=== PATIENT | female | born 1980 ===

== ENCOUNTER 2017-03-09 07:30 | Day surgery (SDC) | payer OTHER ==
[2017-03-04 09:24] VITALS: BMI 34.0
[2017-03-09 08:25] VITALS: O2SAT 100
[2017-03-09] MEDS ORDERED: Lidocaine 2% Inj (20ml) ONE (09:18)
[2017-03-09] MEDS ORDERED: Propofol 10 mg/ml Inj (20 ML) ONE ×3 (09:22→10:26)
[2017-03-09] MEDS ORDERED: Midazolam 2 MG/2 ML VIAL ONE ×3 (09:22→10:26)
--- NOTE | 2017-03-09 10:39 | CP.SDSHP ---
Same Day Surgery H & P - History Proposed Procedure: Marcio Dee MD Pre-Op Diagnosis: None - Allergies Allergies: Allergies No Known Allergies Allergy (Verified 03/22/16 09:38) - Physical Exam Vital Signs: Vital Signs 03/09/17 08:09 Temperature 97.3 F L Pulse Rate 65 Respiratory 20 Rate Blood Pressure 153/86 H O2 Sat by Pulse 100 Oximetry Mental Status: Alert & Oriented x3 Neuro: WNL Heart: WNL Lungs: WNL - Impression Impression: Pt with staghorn calculus left kidney referred for percutaneous nephrostomy for OR. Informed consent obtained for perc. nephrostomy tube placement. Pt. Evaluated Today:Candidate for Anesthesia & Procedure: Yes (ASA 2 Malampati 3) - Date & Time Date: 03/09/17 Time: 08:55 Short Stay Discharge - Short Stay Discharge Admitting Diagnosis/Reason for Visit: RENAL CALCULUS Disposition: HOME/ ROUTINE
--- NOTE | 2017-03-09 10:41 | PCM.SURG1 ---
Surgeon's Initial Post Op Note - Surgeon's Notes Surgeon: Marcio Dee MD Distribution Lineman: None Type of Anesthesia: IV Sedation Pre-Operative Diagnosis: Left renal staghorn calculus Operative Findings: XRAY showed staghorn calculus left kidney. Patent ureter. Post-Operative Diagnosis: Left renal staghorn calculus Operation Performed: Left 8 Fr percutaneous nephrostomy tube placement via a lower pole calyx containing stone. Midpole attempt was not successful. Specimen/Specimens Removed: None Estimated Blood Loss: EBL {In ML}: 2 Blood Products Given: N/A Drains Used: No Drains Post-Op Condition: Fair Date of Surgery/Procedure: 03/09/17 Time of Surgery/Procedure: 10:35
[2017-03-09] MEDS ORDERED: Oxycodone/Acetaminophen 5/325 mg Tab ONE (11:17)
[2017-03-09 12:24] VITALS: BP 150/90; PULSE 86; RESP 18; TEMP 96.4
== END 2017-03-09 13:07 | disposition home or self-care (01) ==
LOC: C.SPRAD 07:30
PROVIDERS: ATTEND Radiology Vascular & Interventional Radiology
DX: N20.0 Calculus of kidney (principal)
CPT/HCPCS: 50432; C1729; C1766; C1769; C1894; J1644; J2250; J2704; Q9967

== ENCOUNTER 2017-03-10 07:22 | Inpatient (IN) | payer OTHER ==
[2017-03-10 07:22] VITALS: BMI 34.0
[2017-03-10] MEDS ORDERED: Sodium Chloride 0.9% 1,000 ML IV ONE (07:43)
[2017-03-10] MEDS ORDERED: cefTRIAXone IV 1 gm in Dextros 50 ML IVPB ONE ×2 (07:58→08:50)
[2017-03-10] MEDS ORDERED: Sodium Chloride 0.9% 1,000 ML ONE (08:08)
--- NOTE | 2017-03-10 08:11 | C.PDOC ---
History Of Present Illness 36-year-old female, is sent to the emergency department by Dr Seth with complaints of fever. Patient had a percutaneous nephrolithotomy tube placed yesterday due to renal calculus; Patient developed nausea, associated with three episodes of non-bloody/non-bilious vomiting, associated with mild abdominal pain and a generalized headache. States she took Tylenol at 22:00. Patient is NPO since last night. Denies shortness of breath, chest pain, dizziness, symptoms, change in bowel habits, or any other associated symptoms. No other complaints at this time. Urologist Carole Seth MD. Time Seen by Provider: 03/10/17 07:36 Chief Complaint (Nursing): GI Problem History Per: Patient History/Exam Limitations: no limitations Onset/Duration Of Symptoms: Hrs Current Symptoms Are (Timing): Still Present Severity: Moderate Past Medical History Reviewed: Historical Data, Nursing Documentation, Vital Signs Vital Signs: Last Vital Signs Temp 99 F 03/10/17 15:18 Pulse 85 03/10/17 15:18 Resp 18 03/10/17 15:18 BP 93/56 L 03/10/17 15:18 Pulse Ox 97 03/10/17 15:18 - Medical History PMH: Anemia, Kidney Stones, Chronic Kidney Disease Family History: States: No Known Family Hx - Social History Hx Alcohol Use: No Hx Substance Use: No - Immunization History Hx Tetanus Toxoid Vaccination: No Hx Influenza Vaccination: No Hx Pneumococcal Vaccination: No Review Of Systems Except As Marked, All Systems Reviewed And Found Negative. Constitutional: Positive for: Fever Cardiovascular: Negative for: Chest Pain, Palpitations Gastrointestinal: Positive for: Nausea, Vomiting, Abdominal Pain. Negative for : Diarrhea Genitourinary: Negative for: Dysuria, Frequency Musculoskeletal: Negative for: Back Pain Neurological: Positive for: Headache. Negative for: Weakness, Numbness, Dizziness Physical Exam - Physical Exam Appears: Non-toxic, No Acute Distress Skin: Warm, Dry, No Rash Eye(s): bilateral: Normal Inspection, PERRL Oral Mucosa: Dry Lips: Normal Appearing Neck: Normal ROM Chest: Symmetrical Cardiovascular: Rhythm Regular, No Murmur Respiratory: Normal Breath Sounds, No Accessory Muscle Use Gastrointestinal/Abdominal: Soft, Tenderness (Mild, left-sided), No Guarding, No Rebound Back: Other (Nephrostomy tube, left. No erythema, discharge, ) Extremity: Normal ROM Neurological/Psych: Oriented x3 ED Course And Treatment - Laboratory Results Result Diagrams: 03/10/17 08:27 03/10/17 08:27 O2 Sat by Pulse Oximetry: 100 (on room air) Medical Decision Making Medical Decision Making: Plan: * Type and Screen * VBG * CMP, Lipase * CBC, PTT, PT * Chest X-Ray * Morphine, Pepcid, IVFs, Zofran, Rocephin * Blood/Urine Cultures * Urinalysis * Reassess and Disposition 08:00 Case discussed w/ Dr Seth, states to treat patient with Abx and IVFs. Call- back with results; Patient is scheduled for OR today. 09:15 Dr Carole Seth at bedside in ED. Disposition - Disposition Disposition: HOSPITALIZED Disposition Time: 09:00 Condition: GOOD - Clinical Impression Clinical Impression: Renal calculi - Scribe Statement The provider has reviewed the documentation as recorded by the [place] All medical record entries made by the Judahibbrent were at my direction and personally dictated by me. I have reviewed the chart and agree that the record accurately reflects my personal performance of the history, physical exam, medical decision making, and the department course for this patient. I have also personally directed, reviewed, and agree with the discharge instructions and disposition.
[2017-03-10] MEDS ORDERED: Morphine 4 MG/ML VIAL IV STA (08:12)
[2017-03-10] MEDS ORDERED: cefTRIAXone IV 1 gm in Dextros 0 ML IVPB ONE (08:16)
[2017-03-10 08:33] LABS: BASO # 0.1 K/uL (0.0-0.2); BASO % 0.5 % (0.0-2.0); EOS % 0.1 % (0.0-4.0); HEMATOCRIT 34.5 % (34.0-47.0); MEAN CELL VOLUME 76.7 fL (81.0-99.0); MEAN CORPUSCULAR HEMOGLOBIN 24.3 pg (27.0-31.0); MEAN CORPUSCULAR HGB CONC 31.6 g/dL (33.0-37.0); MEAN PLATELET VOLUME 11.8 fL (7.2-11.7); MONO # 0.7 K/uL (0.0-0.8); MONO % 5.8 % (0.0-10.0); RED CELL DISTRIBUTION WIDTH 15.2 % (11.5-14.5); WHITE BLOOD COUNT 11.4 K/uL (4.8-10.8)
[2017-03-10 08:40] LABS: VENOUS BLOOD GAS BASE EXCESS 2.6 mmol/L (0.0-2.0); VENOUS BLOOD GAS PCO2 41 mmHg (40-60); VENOUS BLOOD PH 7.43 (7.32-7.43)
[2017-03-10 08:40] LABS: INR 1.2; PLATELET COUNT 98 K/uL (130-400)
[2017-03-10 08:42] LABS: CHLORIDE 97 mmol/L (98-107); SODIUM 135 mmol/L (132-148)
[2017-03-10 08:43] LABS: POTASSIUM 3.2 mmol/L (3.6-5.2)
[2017-03-10 08:45] LABS: ALB/GLOB RATIO 1.3 (1.0-2.1); ALKALINE PHOSPHATASE 64 U/L (38-126); AST/SGOT 20 U/L (14-36); BILIRUBIN,TOTAL 0.7 mg/dL (0.2-1.3); BLOOD UREA NITROGEN 6 mg/dL (7-17); CARBON DIOXIDE 27 mmol/L (22-30); GFR AFRICAN-AMERICAN > 60; GLUCOSE,RANDOM 116 mg/dL (65-105); TOTAL PROTEIN 7.3 g/dL (6.3-8.3)
[2017-03-10 08:46] LABS: ALT/SGPT 19 U/L (9-52); CALCIUM 8.1 mg/dl (8.6-10.4)
[2017-03-10] MEDS ORDERED: Iohexol 240 (50 ml) ONE (08:50)
[2017-03-10] MEDS ORDERED: Bupivacaine 0.5% Inj(30mL) ONE (08:51)
[2017-03-10 09:29] LABS: EOSINOPHIL 1 % (0-4); NEUTROPHIL 88 % (50-75); TOTAL CELLS COUNTED 100
[2017-03-10 09:32] LABS: LARGE PLATELETS PRESENT
[2017-03-10 09:33] LABS: GIANT PLATELETS PRESENT
[2017-03-10] MEDS ORDERED: Lactated Ringer's 1,000 ML IV ONE ×2 (09:35→11:33)
[2017-03-10 09:36] LABS: RBC URINE 249 /hpf (0-3); URINE BACTERIA FEW (<OCC); URINE BILIRUBIN NEGATIVE (NEGATIVE); URINE BLOOD 3+ (NEGATIVE); URINE COLOR Yellow (YELLOW); URINE GLUCOSE (UA) NORMAL (Normal); URINE KETONE NEGATIVE (NEGATIVE); URINE LEUKOCYTE ESTERASE 3+ Leu/uL (Negative); URINE PROTEIN 2+ mg/dL (NEGATIVE); URINE UROBILINOGEN NORMAL mg/dL (0.2-1.0); WBC URINE 334 /hpf (0-5)
[2017-03-10] MEDS ORDERED: Midazolam 2 MG/2 ML VIAL ONE (09:40)
[2017-03-10] MEDS ORDERED: Propofol 10 mg/ml Inj (20 ML) ONE (09:40)
--- NOTE | 2017-03-10 10:13 | RAD ---
PROCEDURE: CHEST RADIOGRAPH, 1 VIEW HISTORY: r/o infiltrate COMPARISON: No prior study available for comparison. FINDINGS: LUNGS: Poor inspiration with low lung volumes, mild crowded bronchovascular markings and mild bibasilar atelectasis. PLEURA: No pneumothorax or pleural fluid seen. CARDIOVASCULAR: Normal. OSSEOUS STRUCTURES: No significant abnormalities. VISUALIZED UPPER ABDOMEN: Normal. OTHER FINDINGS: None. IMPRESSION: Poor inspiration with low lung volumes, mild crowded bronchovascular markings and mild bibasilar atelectasis.
[2017-03-10] MEDS ORDERED: Rocuronium 10 mg/ml (10 ml) ONE (10:47)
[2017-03-10] MEDS ORDERED: HYDROmorphone 0.5 mg/0.5 ml ISec IVP PRN (11:23)
--- NOTE | 2017-03-10 11:58 | PCM.SURG1 ---
Surgeon's Initial Post Op Note - Surgeon's Notes Surgeon: Ke VASQUEZ Trouble Lineman: Tamara EDWARDS Type of Anesthesia: General Endo Pre-Operative Diagnosis: L RENAL STAGHORN CALCULUS Operative Findings: UNABLE TO IDENTIFY STONE Post-Operative Diagnosis: SAME Operation Performed: L PERCUTANEOUS NEPHRSTOMY. PERCUTANEOUS NEPHROSCOPY. ATTEMPTED NEPHROLITHOTOMY, ULTRASONIC LITHOTRIPSY. NEPHROSTOGRAM Specimen/Specimens Removed: URINE Estimated Blood Loss: EBL {In ML}: 100 Blood Products Given: N/A Post-Op Condition: Good Date of Surgery/Procedure: 03/10/17 Time of Surgery/Procedure: 11:30
[2017-03-10] MEDS: Potassium Ch 20mEq in D5-1/2NS 1,000 ML IV SCH (12:32)
--- NOTE | 2017-03-10 16:10 | RAD ---
PROCEDURE: Intraoperative fluoroscopy HISTORY: LT. PERC. COMPARISON: Not available TECHNIQUE: Intraoperative fluoroscopy was provided for placement of a percutaneous nephro ureterostomy catheter Total time of fluoroscopy was 438.1 seconds. FINDINGS: Thirteen fluoroscopic spot films are submitted. Films are on file for review. IMPRESSION: Fluoroscopy provided.
--- NOTE | 2017-03-10 18:25 | CP.PCM.CON ---
History of Present Illness - History of Present Illness History of Present Illness: 36-year-old female, is sent to the emergency department by Dr Seth with complaints of fever. ID consulted for this Patient had a percutaneous nephrolithotomy tube placed yesterday due to renal calculus; Patient developed nausea, associated with three episodes of non-bloody/non- bilious vomiting, associated with mild abdominal pain and a generalized headache. States she took Tylenol at 22:00. Patient is NPO since last night. Denies shortness of breath, chest pain, dizziness, - Medical History PMH: Anemia, Kidney Stones, Chronic Kidney Disease Family History: States: No Known Family Hx Review of Systems - Constitutional Constitutional: As Per HPI - EENT Eyes: absent: As Per HPI, Blind Spots, Blurred Vision, Change in Vision, Decreased Night Vision, Diplopia, Discharge, Dry Eye, Exophthalmos, Floaters, Irritation, Itchy Eyes, Loss of Peripheral Vision, Pain, Photophobia, Requires Corrective Lenses, Sees Flashes, Spots in Vision, Tunnel Vision, Other Visual Disturbances, Loss of Vision, Other Ears: absent: As Per HPI, Decreased Hearing, Ear Discharge, Ear Pain, Tinnitus, Abnormal Hearing, Disequilibrium, Dizziness, Other Nose/Mouth/Throat: absent: As Per HPI, Epistaxis, Nasal Congestion, Nasal Discharge, Nasal Obstruction, Nasal Trauma, Nose Pain, Post Nasal Drip, Sinus Pain, Sinus Pressure, Bleeding Gums, Change in Voice, Dental Pain, Dry Mouth, Dysphagia, Halitosis, Hoarsness, Lip Swelling, Mouth Lesions, Mouth Pain, Odynophagia, Sore Throat, Throat Swelling, Tongue Swelling, Facial Pain, Neck Pain, Neck Mass, Other - Breasts Breasts: absent: As Per HPI, Change in Shape, Mass, Pain, Nipple Discharge, Nipple Inversion, Skin Changes, Swelling, Other - Cardiovascular Cardiovascular: absent: As Per HPI, Acrocyanosis, Chest Pain, Chest Pain at Rest , Chest Pain with Activity, Claudication, Diaphoresis, Dyspnea, Dyspnea on Exertion, Edema, Irregular Heart Rhythm, Pain Radiating to Arm/Neck/Jaw, Leg Edema, Leg Ulcers, Lightheadedness, Orthopnea, Palpitations, Paroxysmal Nocturnal Dyspnea, Pedal Edema, Radiating Pain, Rapid Heart Rate, Slow Heart Rate, Syncope, Other - Respiratory Respiratory: absent: As Per HPI, Cough, Dyspnea, Hemoptysis, Dyspnea on Exertion , Wheezing, Snoring, Stridor, Pain on Inspiration, Chest Congestion, Excessive Mucous Production, Change in Mucous Color, Pain with Coughing, Other - Gastrointestinal Gastrointestinal: absent: As Per HPI, Abdominal Pain, Belching, Bloating, Change in Bowel Habits, Change in Stool Character, Coffee Ground Emesis, Constipation, Cramping, Diarrhea, Dyspepsia, Dysphagia, Early Satiety, Excessive Flatus, Fecal Incontinence, Heartburn, Hematemesis, Hematochezia, Loose Stools, Melena, Nausea, Odynophagia, Temesmus, Vomiting, Other - Genitourinary Genitourinary: As Per HPI - Reproductive: Female Reproductive:Female: absent: As Per HPI, Amenorrhea, Amenorrhea/ Control, Currently Menstual, Cycle <21 Days, Cycle >35 Days, Cycle Variable, Menses 1-7 Days, Menses >/= 8 Days, Menses Variable, Cycle > 4 Weeks Between, No Menses for 6 Months, Heavy Menses, Light Menses, Normal Menses, Spotting Between Cycles , S/P Hysterectomy, Menopausal, Post Menopausal, Premenarche, Abnormal Vaginal Bleeding, Dysmenorrhea, Dyspareunia, Genital Lesions, Genital Pruritis, Pelvic Pain, Prolapse Symptoms, Sexual Dysfunction, Vaginal Discharge, Vaginal Dryness , Vaginal Odor, Vaginal Pruritis, Other - Menstruation Menstruation: absent: As Per HPI, Amenorrhea, Amenorrhea/ Control, Currently Menstual, Cycle <21 Days, Cycle >35 Days, Cycle Variable, Menses 1-7 Days, Menses >/= 8 Days, Menses Variable, Cycle > 4 Weeks Between, No Menses for 6 Months, Heavy Menses, Light Menses, Normal Menses, Spotting Between Cycles , S/P Hysterectomy, Menopausal, Post Menopausal, Premenarche, Abnormal Vaginal Bleeding, Dysmenorrhea, Other - Musculoskeletal Musculoskeletal: absent: As Per HPI, Abnormal Gait, Arthralgias, Atrophy, Back Pain, Deformity, Joint Swelling, Limited Range of Motion, Loss of Height, Muscle Cramps, Muscle Weakness, Myalgias, Neck Pain, Numbness, Radiating Pain into Limb, Stiffness, Tingling, Other - Integumentary Integumentary: absent: As Per HPI, Acne, Alopecia, Bleeding Lesions, Change in Hair, Change in Nails, Change in Pigmentation, Changing Lesions, Dry Skin, Erythema, Furuncle, Hirsutism, Lesions, New Lesions, Non-Healing Lesions, Photosensitivity, Pruritus, Rash, Skin Pain, Skin Ulcer, Sores, Striae, Swelling , Unusual Bruising, Wounds, Jaundice, Other - Neurological Neurological: absent: As Per HPI, Abnormal Gait, Abnormal Hearing, Abnormal Movements, Abnormal Speech, Behavioral Changes, Burning Sensations, Confusion, Convulsions, Disequilibrium, Dizziness, Numbness, Focal Weakness, Frequent Falls , Headaches, Lack of Coordination, Loss of Vision, Memory Loss, Paresthesias, Radicular Pain, Restless Legs, Sensory Deficit, Syncope, Tingling, Tremor, Vertigo, Weakness, Other Visual Disturbances, Other - Psychiatric Psychiatric: absent: As Per HPI, Abnormal Sleep Pattern, Anhedonia, Anxiety, Auditory Hallucinations, Behavioral Changes, Change in Appetite, Change in Libido, Confusion, Depression, Difficulty Concentrating, Hallucinations, Homicidal Ideation, Hopelessness, Irritability, Memory Loss, Mood Swings, Panic Attacks, Paranoia, Suicidal Ideation, Visual Hallucinations, Tactile Hallucinations, Other - Endocrine Endocrine: absent: As Per HPI, Change in Body Appearance, Change in Libido, Cold Intolorance, Deepening of Voice, Excessive Sweating, Fatigue, Flushing, Heat Intolorance, Increase in Ring/Shoe/Hat Size, Palpitations, Polydipsia, Polyphagia, Polyuria, Other - Hematologic/Lymphatic Hematologic: absent: As Per HPI, Easy Bleeding, Easy Bruising, Lymphadenopathy, Other Past Patient History - Infectious Disease Hx of Infectious Diseases: None - Past Medical History & Family History Past Medical History?: Yes - Past Social History Smoking Status: Never Smoked - CARDIAC Hx Cardiac Disorders: No - PULMONARY Hx Respiratory Disorders: No - NEUROLOGICAL Hx Neurological Disorder: No - HEENT Hx HEENT Problems: No - RENAL Hx Chronic Kidney Disease: Yes Hx Kidney Stones: Yes - ENDOCRINE/METABOLIC Hx Endocrine Disorders: No - HEMATOLOGICAL/ONCOLOGICAL Hx Anemia: Yes - INTEGUMENTARY Hx Dermatological Problems: No - MUSCULOSKELETAL/RHEUMATOLOGICAL Hx Falls: No - GASTROINTESTINAL Hx Gastrointestinal Disorders: Yes Hx Constipation: Yes - GENITOURINARY/GYNECOLOGICAL Hx Genitourinary Disorders: Yes Hx Hematuria: Yes - PSYCHIATRIC Hx Psychophysiologic Disorder: No Hx Substance Use: No - SURGICAL HISTORY Hx Surgeries: Yes Hx Section: Yes (X3) - ANESTHESIA Hx Anesthesia: Yes Hx Anesthesia Reactions: No Hx Malignant Hyperthermia: No Meds Allergies/Adverse Reactions: Allergies Allergy/AdvReac Type Severity Reaction Status Date / Time No Known Allergies Allergy Verified 03/22/16 09:38 - Medications Medications: Current Medications Potassium Chloride/Dextrose/Sod Cl (Potassium Chl 20 Meq In D5-1/2ns) 1,000 mls @ 100 mls/hr IV .Q10H YEIMY Last Admin: 03/10/17 12:32 Dose: 100 mls Physical Exam - Constitutional Appears: Non-toxic, Chronically Ill - Head Exam Head Exam: ATRAUMATIC, NORMAL INSPECTION, NORMOCEPHALIC - Eye Exam Eye Exam: PERRL. absent: Scleral icterus - ENT Exam ENT Exam: Mucous Membranes Dry, Normal External Ear Exam, Normal Oropharynx - Neck Exam Neck exam: Negative for: Lymphadenopathy, Thyromegaly - Respiratory Exam Respiratory Exam: Decreased Breath Sounds, Clear to Auscultation Bilateral - Cardiovascular Exam Cardiovascular Exam: REGULAR RHYTHM, +S1, +S2 - GI/Abdominal Exam GI & Abdominal Exam: Diminished Bowel Sounds, Distended, Guarding, Soft, Tenderness. absent: Hernia, Rebound, Rigid Additional comments: + nephrostomy tubes bilat + khan - Rectal Exam Rectal Exam: Deferred - Exam Exam: NORMAL INSPECTION - Extremities Exam Extremities exam: Negative for: calf tenderness, pedal edema - Back Exam Back exam: absent: CVA tenderness (L), CVA tenderness (R) - Neurological Exam Neurological exam: Alert, CN II-XII Intact, Oriented x3, Reflexes Normal - Psychiatric Exam Psychiatric exam: Normal Mood - Skin Skin Exam: Dry Results - Vital Signs Recent Vital Signs: Last Vital Signs Temp 99 F 03/10/17 15:18 Pulse 85 03/10/17 15:18 Resp 18 03/10/17 15:18 BP 93/56 L 03/10/17 15:18 Pulse Ox 97 03/10/17 15:18 - Labs Result Diagrams: 03/10/17 08:27 03/10/17 08:27 Assessment & Plan - Assessment and Plan (Free Text) Assessment: fever s/p nephrolithotomy for staghorn calculi with bilat nephrostomy tubes in place r/o systemic infection/ sepsis iv rx in progrress
[2017-03-10] MEDS: Cefepime IV 1 gm in Dextrose 1 GM/50 ML BAG IVPB SCH (19:21)
[2017-03-11] MEDS: Morphine 4 MG/ML VIAL IV PRN ×5 (00:58→19:07)
[2017-03-11] MEDS: Cefepime IV 1 gm in Dextrose 1 GM/50 ML BAG IVPB SCH ×2 (05:35→19:00)
[2017-03-11 07:29] LABS: BASO % 0.2 % (0.0-2.0); EOS % 0.3 % (0.0-4.0); HEMATOCRIT 25.4 % (34.0-47.0); LYMPH # 1.3 K/uL (1.0-4.3); LYMPH % 11.4 % (20.0-40.0); MEAN CELL VOLUME 77.5 fL (81.0-99.0); MEAN CORPUSCULAR HEMOGLOBIN 24.8 pg (27.0-31.0); MEAN PLATELET VOLUME 11.6 fL (7.2-11.7); MONO # 1.1 K/uL (0.0-0.8); MONO % 9.1 % (0.0-10.0); RED CELL DISTRIBUTION WIDTH 15.3 % (11.5-14.5); WHITE BLOOD COUNT 11.6 K/uL (4.8-10.8)
--- NOTE | 2017-03-11 07:49 | PCM.URO ---
Urology Progress Note - General General: Tolerating Diet - Subjective Abdominal Pain: Yes Flank Pain: Yes Nausea: No Vomiting: No Hematuria: Yes Dsypnea: No Chest Pain: No Fever & Chills: Yes - Objective Lab Results Last 24 Hours: Laboratory Results - last 24 hr 03/10/17 03/11/17 19:53 05:47 WBC 11.6 H RBC 3.27 L Hgb 8.1 L D Hct 25.4 L MCV 77.5 L MCH 24.8 L MCHC 32.0 L RDW 15.3 H Plt Count 80 L MPV 11.6 Neut % (Auto) 79.0 H Lymph % (Auto) 11.4 L [place] % (Auto) 9.1 Eos % (Auto) 0.3 Baso % (Auto) 0.2 Neut # 9.1 H Lymph # 1.3 [place] # 1.1 H Eos # 0.0 Baso # 0.0 Lactic Acid 1.2 Intake & Output: Intake & Output 03/10/17 03/11/17 03/11/17 18:59 06:59 18:59 Intake Total 1900 Output Total 600 2425 Balance -600 -525 Intake: Intake, IV Amount 1600 Right Antecubital 1600 Oral 300 Output: Drainage 50 150 Left Back 150 Left Lower 0 Urine 550 2275 Urethral (Akers) 2275 Other: Voiding Method Indwelling Catheter Vital Signs: Vital Signs - 24 hr 03/10/17 03/10/17 03/10/17 13:00 13:15 13:30 Temperature 101.3 F H Pulse Rate 99 H 93 H 100 H Respiratory 24 23 33 H Rate Blood Pressure 114/59 L 105/53 L 107/50 L O2 Sat by Pulse 100 100 100 Oximetry 03/10/17 03/10/17 03/10/17 14:47 15:18 18:22 Temperature 98.3 F 99 F Pulse Rate 89 85 Respiratory 20 18 Rate Blood Pressure 102/66 93/56 L O2 Sat by Pulse 95 97 100 Oximetry 03/10/17 03/10/17 03/10/17 19:00 21:00 22:30 Temperature 102.3 F H 102.1 F H 100.1 F H Pulse Rate 104 H Respiratory 20 Rate Blood Pressure 130/70 O2 Sat by Pulse 98 Oximetry 03/10/17 03/11/17 03/11/17 23:40 03:23 05:30 Temperature 102.9 F H 100.7 F H 99.9 F H Pulse Rate 110 H 101 H Respiratory 20 20 Rate Blood Pressure 113/73 110/69 O2 Sat by Pulse 99 Oximetry - Physical Exam Abdominal Exam: Soft, Non-Distended. absent: Non-Tender Wound: Clean Back: CVA Tenderness Urinary Catheter Draining Well: Yes Urine Color: Dark Red Extremities: Normal: Bilateral - Plan Wound Care: Yes Catheter Care: Yes Ambulation - Out of Bed: Yes Intake & Output: Yes See Orders: Yes Additional Information: Imp: fever, uti. urolithiasis. Plan: cultures. antibiotic rx. lab data. nephrostomy tubes in place. oob - Date & Time of Note Date: 03/11/17 Time: 07:49
[2017-03-11 08:26] LABS: THYROID STIMULATING HORMONE 1.06 mIU/L (0.46-4.68)
[2017-03-11 08:45] LABS: CHLORIDE 100 mmol/L (98-107); SODIUM 136 mmol/L (132-148)
[2017-03-11 08:46] LABS: POTASSIUM 3.3 mmol/L (3.6-5.2)
[2017-03-11 08:48] LABS: ALKALINE PHOSPHATASE 52 U/L (38-126); ALT/SGPT 24 U/L (9-52); AST/SGOT 27 U/L (14-36); BILIRUBIN,TOTAL 0.5 mg/dL (0.2-1.3); BLOOD UREA NITROGEN 6 mg/dL (7-17); CARBON DIOXIDE 27 mmol/L (22-30); GFR AFRICAN-AMERICAN > 60; GLUCOSE,RANDOM 121 mg/dL (65-105); TOTAL PROTEIN 5.9 g/dL (6.3-8.3); URIC ACID 3.7 mg/dL (2.2-7.5)
--- NOTE | 2017-03-11 08:51 | OP ---
PROCEDURE DATE: 03/10/2017 DESCRIPTION OF PROCEDURE: 03/10/2017. PREOPERATIVE DIAGNOSIS: Left renal staghorn calculus. POSTOPERATIVE DIAGNOSIS: Left renal staghorn calculus. PROCEDURES: Left percutaneous nephroscopy. Attempted nephrolithotomy. Left percutaneous nephrostom y tube access insertion. Left nephrostomy tube insertion ____. Nephrostogram. PROCEDURE FOLLOWS: The patient had received perioperative antibiotics. The patient received gene ral anesthesia, via endotracheal tube. Akers catheter was inserted. The patient was then placed in the prone position. All appropriate pressure points were padded. Procedure itself was performed under fluoroscopic control with C-arm. The procedure was performed un jarek video endoscopic control as well. The nephroureteral catheter was identified, the staghorn calculus was identified - both findings on t he C-arm fluoroscopy. A 0.038 inch guidewire was inserted through the catheter down to the bladder. The nephrostomy tract was dilated with flexible fascial dilators starting at 6-Estonian up to 10-Estonian . Thereafter, the safety guidewire catheter was introduced over the 10-Estonian catheter. The second guidewire was then passed out to the bladder. The nephrostomy tract was dilated with a balloon catheter up to a size 30-Estonian. The Amplatz sheath was then inserted over the balloon into the collecting system. The nephroscopy was performed. A 24-Estonian nephroscope was introduced. However, the stones could not be visualized. Extensive inspection was performed through this tract u nder C-arm guidance. However, the renal stones could not be identified. A 24-Estonian reentry nephrostomy tube was inserted over the guidewire. Attention was then turned toward the caliceal branch stone located just cephalad to the lower pole. The stone was identified on biplanar fluoroscopy. Using a triangulation technique, the access was ac hieved to that stone. Urine was drained through the 18 gauge needle. A guidewire was inserted. The nephrostomy tract was again dilated with flexible fascial dilators followed by the balloon dilation. The sheath was inserted over the balloon. The nephroscope was inserted. However, again the stone could not be identified. A 24-Estonian Malecot catheter was inserted over the guidewire. Nephrostogram was performed via each nephrostomy tube. There was no extravasation noted. The nephrostomy tubes were secured with silk sutures. Marcaine was infiltrated along each tube tract as well as for intercostal block for postoperative analgesia. A sterile dressing was applied. The patient tolerated the procedure without complication. Carole Seth MD cc: [id number] TT: 03/11/2017 08:07:13 mn
[2017-03-11] MEDS: Multivitamin With Minerals Tab PO SCH (09:37)
[2017-03-11] MEDS: Potassium Ch 20mEq in D5-1/2NS 1,000 ML IV SCH ×2 (14:30)
--- NOTE | 2017-03-11 18:48 | CP.PCM.PN ---
Subjective - Date & Time of Evaluation Date of Evaluation: 03/11/17 Time of Evaluation: 08:00 - Subjective Subjective: cultures neg thus far rx in progress Objective - Vital Signs/Intake and Output Vital Signs (last 24 hours): Temp Pulse Resp BP Pulse Ox 99.9 F H 89 20 115/75 98 03/11/17 16:00 03/11/17 16:00 03/11/17 16:00 03/11/17 16:00 03/11/17 16:00 Intake and Output: 03/11/17 03/11/17 06:59 18:59 Intake Total 1900 240 Output Total 2425 300 Balance -525 -60 - Medications Medications: Current Medications Acetaminophen (Tylenol 325mg Tab) 650 mg PO Q4 PRN PRN Reason: Fever >101F Last Admin: 03/11/17 08:15 Dose: 650 mg Docusate Sodium (Colace) 100 mg PO TID [facility] Last Admin: 03/11/17 13:03 Dose: 100 mg Potassium Chloride/Dextrose/Sod Cl (Potassium Chl 20 Meq In D5-1/2ns) 1,000 mls @ 100 mls/hr IV .Q10H [facility] Last Admin: 03/11/17 14:30 Dose: 100 mls/hr Cefepime HCl (Maxipime Iv 1 Gm Premix) 1 gm in 50 mls @ 100 mls/hr IVPB Q12H [facility] Last Admin: 03/11/17 05:35 Dose: 100 mls/hr Morphine Sulfate (Morphine) 2 mg IV Q4 PRN PRN Reason: Pain Last Admin: 03/11/17 15:16 Dose: 2 mg Multivitamins/Minerals (Therapeutic-M Tab) 1 tab PO DAILY [facility] Last Admin: 03/11/17 09:37 Dose: 1 tab Pneumococcal Polyvalent Vaccine (Pneumovax 23 Vaccine) 0.5 ml IM .ONCE ONE Stop: 03/13/17 10:01 - Labs Labs: 03/11/17 05:47 03/11/17 05:47 PT 13.2 SECONDS (9.7-12.2) H 03/10/17 08:27 INR 1.2 03/10/17 08:27 APTT 28 SECONDS (21-34) 03/10/17 08:27 Assessment and Plan (1) Nephrostomy status Status: Acute (2) Nephrostomy status Status: Acute (3) UTI (urinary tract infection) Status: Acute (4) Fever Status: Acute (5) Fever Status: Acute
[2017-03-12] MEDS: Potassium Ch 20mEq in D5-1/2NS 1,000 ML IV SCH ×3 (00:05→14:26)
[2017-03-12] MEDS: Morphine 4 MG/ML VIAL IV PRN ×5 (00:23→23:50)
[2017-03-12] MEDS: Cefepime IV 1 gm in Dextrose 1 GM/50 ML BAG IVPB SCH ×2 (06:08→18:00)
[2017-03-12 07:32] LABS: BASO % 0.3 % (0.0-2.0); EOS # 0.2 K/uL (0.0-0.7); EOS % 1.6 % (0.0-4.0); HEMATOCRIT 23.8 % (34.0-47.0); LYMPH # 1.7 K/uL (1.0-4.3); MEAN CORPUSCULAR HEMOGLOBIN 24.6 pg (27.0-31.0); MEAN PLATELET VOLUME 11.7 fL (7.2-11.7); MONO # 0.9 K/uL (0.0-0.8); MONO % 8.1 % (0.0-10.0); RED CELL DISTRIBUTION WIDTH 15.2 % (11.5-14.5)
[2017-03-12 07:53] LABS: CHLORIDE 100 mmol/L (98-107); POTASSIUM 3.3 mmol/L (3.6-5.2); SODIUM 135 mmol/L (132-148)
[2017-03-12 07:55] LABS: BILIRUBIN,TOTAL 0.6 mg/dL (0.2-1.3); CARBON DIOXIDE 25 mmol/L (22-30); GFR AFRICAN-AMERICAN > 60
[2017-03-12 07:56] LABS: ALB/GLOB RATIO 0.9 (1.0-2.1); ALKALINE PHOSPHATASE 78 U/L (38-126); ALT/SGPT 22 U/L (9-52); AST/SGOT 26 U/L (14-36); BLOOD UREA NITROGEN 4 mg/dL (7-17); CALCIUM 7.8 mg/dl (8.6-10.4); GLUCOSE,RANDOM 118 mg/dL (65-105); TOTAL PROTEIN 6.1 g/dL (6.3-8.3)
[2017-03-12] MEDS ORDERED: Magnesium Hydroxide Susp 30 ml UD PO ONE (08:00)
[2017-03-12] MEDS: Multivitamin With Minerals Tab PO SCH (09:19)
--- NOTE | 2017-03-12 16:06 | CP.PCM.PN ---
Subjective - Date & Time of Evaluation Date of Evaluation: 03/12/17 Time of Evaluation: 08:00 - Subjective Subjective: cultures negative rx in progress left side still painfu; tender no fever Objective - Vital Signs/Intake and Output Vital Signs (last 24 hours): Temp Pulse Resp BP Pulse Ox 97.8 F 83 18 109/66 100 03/12/17 15:34 03/12/17 15:34 03/12/17 15:34 03/12/17 15:34 03/12/17 15:34 Intake and Output: 03/12/17 03/12/17 06:59 18:59 Intake Total 2300 1400 Output Total 3050 1300 Balance -750 100 - Medications Medications: Current Medications Acetaminophen (Tylenol 325mg Tab) 650 mg PO Q4 PRN PRN Reason: Fever >101F Last Admin: 03/12/17 04:53 Dose: 650 mg Docusate Sodium (Colace) 100 mg PO TID [facility] Last Admin: 03/12/17 13:18 Dose: 100 mg Potassium Chloride/Dextrose/Sod Cl (Potassium Chl 20 Meq In D5-1/2ns) 1,000 mls @ 100 mls/hr IV .Q10H [facility] Last Admin: 03/12/17 14:26 Dose: 100 mls/hr Cefepime HCl (Maxipime Iv 1 Gm Premix) 1 gm in 50 mls @ 100 mls/hr IVPB Q12H [facility] Last Admin: 03/12/17 06:08 Dose: 100 mls/hr Potassium Chloride (Potassium Chloride 10 Meq/100 Ml) 10 meq in 100 mls @ 100 mls/hr IVPB ONCE ONE Stop: 03/12/17 18:59 Morphine Sulfate (Morphine) 2 mg IV Q4 PRN PRN Reason: Pain Last Admin: 03/12/17 13:30 Dose: 2 mg Multivitamins/Minerals (Therapeutic-M Tab) 1 tab PO DAILY [facility] Last Admin: 03/12/17 09:19 Dose: 1 tab Pneumococcal Polyvalent Vaccine (Pneumovax 23 Vaccine) 0.5 ml IM .ONCE ONE Stop: 03/13/17 10:01 - Labs Labs: 03/12/17 07:24 03/12/17 07:24 PT 13.2 SECONDS (9.7-12.2) H 03/10/17 08:27 INR 1.2 03/10/17 08:27 APTT 28 SECONDS (21-34) 03/10/17 08:27 - Constitutional Appears: Non-toxic, Chronically Ill - Head Exam Head Exam: NORMOCEPHALIC - Eye Exam Eye Exam: PERRL. absent: Scleral icterus - ENT Exam ENT Exam: Mucous Membranes Dry - Neck Exam Neck Exam: absent: Lymphadenopathy - Respiratory Exam Respiratory Exam: Decreased Breath Sounds - Cardiovascular Exam Cardiovascular Exam: REGULAR RHYTHM - GI/Abdominal Exam GI & Abdominal Exam: Distended, Soft - Rectal Exam Rectal Exam: Deferred - Exam Exam: NORMAL INSPECTION - Extremities Exam Extremities Exam: absent: Pedal Edema - Back Exam Back Exam: absent: CVA tenderness (L), CVA tenderness (R) Assessment and Plan (1) Nephrostomy status Status: Acute (2) Nephrostomy status Status: Acute (3) UTI (urinary tract infection) Status: Acute (4) Fever Status: Acute (5) Fever Status: Acute
--- NOTE | 2017-03-12 17:24 | PCM.URO ---
Urology Progress Note - General General: Tolerating Diet - Subjective Abdominal Pain: Yes (LEFT SIDED, LESS) Flank Pain: Yes Nausea: No Vomiting: No Voiding Well: Yes Hematuria: Yes (SL PINK, URIEL IN NT) Fever & Chills: Yes (FEVER YESTERDAY, T EAY=[id number]) - Objective Lab Studies: Reviewed Lab Results Last 24 Hours: Laboratory Results - last 24 hr 03/11/17 03/12/17 03/12/17 05:47 07:24 07:24 WBC 11.0 H RBC 3.09 L Hgb 7.6 L Hct 23.8 L MCV 77.0 L MCH 24.6 L MCHC 32.0 L RDW 15.2 H Plt Count 80 L MPV 11.7 Neut % (Auto) 75.0 Lymph % (Auto) 15.0 L [place] % (Auto) 8.1 Eos % (Auto) 1.6 Baso % (Auto) 0.3 Neut # 8.3 H Lymph # 1.7 [place] # 0.9 H Eos # 0.2 Baso # 0.0 Sodium 135 Potassium 3.3 L Chloride 100 Carbon Dioxide 25 Anion Gap 12 BUN 4 L Creatinine 0.7 Est GFR ( Amer) > 60 Est GFR (Non-Af Amer) > 60 Random Glucose 118 H Calcium 7.8 L Total Bilirubin 0.6 AST 26 ALT 22 Alkaline Phosphatase 78 Total Protein 6.1 L Albumin 3.0 L Globulin 3.2 Albumin/Globulin Ratio 0.9 L PTH Intact Whole Molec 50 Intake & Output: Intake & Output 03/11/17 03/12/17 03/12/17 18:59 06:59 18:59 Intake Total 240 2300 1400 Output Total 300 3050 1300 Balance -60 -750 100 Intake: Intake, IV Amount 1600 800 Right Antecubital 1600 800 Oral 240 700 600 Output: Drainage 300 900 400 Left Back 300 425 400 Left Lower 0 475 Urine 2150 900 Urine, Voided 2150 900 Other: # Voids Urine, Voided 2 2 # Bowel Movements 0 Vital Signs: Vital Signs - 24 hr 03/11/17 03/11/17 03/12/17 19:00 21:00 00:00 Temperature 102.9 F H 98.7 F 98.8 F Pulse Rate 103 H 99 H 86 Respiratory 20 20 20 Rate Blood Pressure 115/78 119/83 120/81 O2 Sat by Pulse 99 96 98 Oximetry 03/12/17 03/12/17 03/12/17 04:00 04:53 06:14 Temperature 100.5 F H 102.6 F H 99.2 F Pulse Rate 103 H Respiratory 20 Rate Blood Pressure 126/82 O2 Sat by Pulse 98 Oximetry 03/12/17 03/12/17 07:30 15:34 Temperature 98.5 F 97.8 F Pulse Rate 90 83 Respiratory 17 18 Rate Blood Pressure 110/69 109/66 O2 Sat by Pulse 97 100 Oximetry - Physical Exam Abdominal Exam: Soft, Non-Distended. absent: Non-Tender Bowel Sounds: Normal Dressing: Dry Back: CVA Tenderness - Female External Genitalia: Normal - Plan Discontinue Drain: Yes (MID POLE NT REMOVED) Wound Care: Yes Catheter Care: Yes (LOWER NT IN PLACE) Ambulation - Out of Bed: Yes Intake & Output: Yes See Orders: Yes Additional Information: IMP: FEVER. PROB UTI. NEGATIVE CULTURES SO FAR. PLAN : ANTIBIOTIC RX - Date & Time of Note Date: 03/12/17 Time: 09:45
[2017-03-13] MEDS: Cefepime IV 1 gm in Dextrose 1 GM/50 ML BAG IVPB SCH ×2 (05:44→18:28)
[2017-03-13] MEDS: Potassium Ch 20mEq in D5-1/2NS 1,000 ML IV SCH ×3 (05:45→13:17)
[2017-03-13] MEDS: Multivitamin With Minerals Tab PO SCH (09:21)
[2017-03-13] MEDS ORDERED: Pneumococcal 23-Valent Vaccine IM ONE (10:00)
[2017-03-14] MEDS: Cefepime IV 1 gm in Dextrose 1 GM/50 ML BAG IVPB SCH ×2 (06:22→17:19)
[2017-03-14 08:52] LABS: BASO % 0.3 % (0.0-2.0); EOS # 0.6 K/uL (0.0-0.7); EOS % 6.3 % (0.0-4.0); HEMATOCRIT 26.2 % (34.0-47.0); LYMPH % 21.7 % (20.0-40.0); MEAN CELL VOLUME 76.9 fL (81.0-99.0); MEAN CORPUSCULAR HEMOGLOBIN 24.4 pg (27.0-31.0); MEAN CORPUSCULAR HGB CONC 31.7 g/dL (33.0-37.0); MEAN PLATELET VOLUME 11.3 fL (7.2-11.7); MONO # 0.6 K/uL (0.0-0.8); MONO % 6.7 % (0.0-10.0); NRBC % 0.1 % (0.0-2.0); RED CELL DISTRIBUTION WIDTH 14.7 % (11.5-14.5); WHITE BLOOD COUNT 9.4 K/uL (4.8-10.8)
[2017-03-14 09:12] LABS: CHLORIDE 99 mmol/L (98-107); POTASSIUM 3.8 mmol/L (3.6-5.2); SODIUM 137 mmol/L (132-148)
[2017-03-14 09:15] LABS: BLOOD UREA NITROGEN 7 mg/dL (7-17); CARBON DIOXIDE 26 mmol/L (22-30); GFR AFRICAN-AMERICAN > 60
[2017-03-14 09:16] LABS: CALCIUM 8.4 mg/dl (8.6-10.4); GLUCOSE,RANDOM 93 mg/dL (65-105)
[2017-03-14] MEDS: Multivitamin With Minerals Tab PO SCH (09:37)
--- NOTE | 2017-03-14 13:08 | CP.PCM.PN ---
Subjective - Date & Time of Evaluation Date of Evaluation: 03/14/17 Time of Evaluation: 08:00 - Subjective Subjective: NO FEVER URINE ISOLATE SENS TO CEFEPIME GOOD NEPHROSTOMY TUBE OUTPUT- CLEAR URINE LESS PAIN AND NO FEVER Objective - Vital Signs/Intake and Output Vital Signs (last 24 hours): Temp Pulse Resp BP Pulse Ox 98.7 F 82 18 116/80 98 03/14/17 11:00 03/14/17 11:00 03/14/17 11:00 03/14/17 11:00 03/14/17 08:32 Intake and Output: 03/14/17 03/14/17 06:59 18:59 Intake Total 900 Output Total 940 Balance -40 - Medications Medications: Current Medications Acetaminophen (Tylenol 325mg Tab) 650 mg PO Q4 PRN PRN Reason: Fever >101F Last Admin: 03/14/17 00:44 Dose: 650 mg Docusate Sodium (Colace) 100 mg PO TID [facility] Last Admin: 03/14/17 09:37 Dose: 100 mg Cefepime HCl (Maxipime Iv 1 Gm Premix) 1 gm in 50 mls @ 100 mls/hr IVPB Q12H [facility] Last Admin: 03/14/17 06:22 Dose: 100 mls/hr Morphine Sulfate (Morphine) 2 mg IV Q4 PRN PRN Reason: Pain Last Admin: 03/12/17 23:50 Dose: 2 mg Multivitamins/Minerals (Therapeutic-M Tab) 1 tab PO DAILY [facility] Last Admin: 03/14/17 09:37 Dose: 1 tab - Labs Labs: 03/14/17 08:43 03/14/17 08:43 PT 13.2 SECONDS (9.7-12.2) H 03/10/17 08:27 INR 1.2 03/10/17 08:27 APTT 28 SECONDS (21-34) 03/10/17 08:27 - Constitutional Appears: Non-toxic, Chronically Ill - Head Exam Head Exam: NORMOCEPHALIC - Eye Exam Eye Exam: PERRL. absent: Scleral icterus - ENT Exam ENT Exam: Mucous Membranes Dry - Neck Exam Neck Exam: absent: Lymphadenopathy - Respiratory Exam Respiratory Exam: Decreased Breath Sounds, Rhonchi - Cardiovascular Exam Cardiovascular Exam: REGULAR RHYTHM, +S1, +S2 - GI/Abdominal Exam GI & Abdominal Exam: Distended, Soft Assessment and Plan (1) Nephrostomy status Status: Acute (2) Nephrostomy status Status: Acute (3) UTI (urinary tract infection) Status: Acute (4) Fever Status: Acute (5) Fever Status: Acute
--- NOTE | 2017-03-14 17:37 | PCM.URO ---
Urology Progress Note - General General: No Complaints, Tolerating Diet (FEELING BETTER) - Subjective Abdominal Pain: No Flank Pain: Yes (MUCH LESS) Nausea: No Vomiting: No Voiding Well: Yes Hematuria: No Good Stream: Yes Stone Passed: No Dsypnea: No Chest Pain: No Fever & Chills: No (LOWER FEVER YESTERDAY) Other: HAD BM - Objective Lab Studies: Reviewed Lab Results Last 24 Hours: Laboratory Results - last 24 hr 03/14/17 03/14/17 08:43 08:43 WBC 9.4 RBC 3.41 L Hgb 8.3 L Hct 26.2 L MCV 76.9 L MCH 24.4 L MCHC 31.7 L RDW 14.7 H Plt Count 161 MPV 11.3 Neut % (Auto) 65.0 Lymph % (Auto) 21.7 [place] % (Auto) 6.7 Eos % (Auto) 6.3 H Baso % (Auto) 0.3 Neut # 6.1 Lymph # 2.0 [place] # 0.6 Eos # 0.6 Baso # 0.0 Sodium 137 Potassium 3.8 Chloride 99 Carbon Dioxide 26 Anion Gap 16 BUN 7 Creatinine 0.7 Est GFR ( Amer) > 60 Est GFR (Non-Af Amer) > 60 Random Glucose 93 Calcium 8.4 L Intake & Output: Intake & Output 03/13/17 03/14/17 03/14/17 18:59 06:59 18:59 Intake Total 1100 900 600 Output Total 8563 023 2558 Balance -850 -40 -450 Intake: Intake, IV Amount 500 150 Right Antecubital 500 150 Oral 600 750 600 Output: Drainage 650 540 350 Left Back 650 540 350 Urine 1300 400 700 Urine, Voided 1300 400 700 Stool 0 Other: # Bowel Movements 1 1 Vital Signs: Vital Signs - 24 hr 03/13/17 03/13/17 03/14/17 22:00 23:50 00:44 Temperature 98 F 100.7 F H 100.7 F H Pulse Rate 78 108 H Respiratory 18 20 Rate Blood Pressure 120/80 110/70 O2 Sat by Pulse 98 98 Oximetry 03/14/17 03/14/17 03/14/17 01:44 08:32 11:00 Temperature 98.6 F 99.7 F H 98.7 F Pulse Rate 92 H 82 Respiratory 20 18 Rate Blood Pressure 120/84 116/80 O2 Sat by Pulse 98 Oximetry 03/14/17 15:01 Temperature 98 F Pulse Rate 99 H Respiratory 20 Rate Blood Pressure 113/77 O2 Sat by Pulse 100 Oximetry - Physical Exam Abdominal Exam: Soft, Non-Tender, Non-Distended Bowel Sounds: Normal Wound: Healing Well Dressing: Intact Back: No CVA Tenderness - Plan Catheter Care: Yes Additional Information: CONTINUE ANTIBIOTIC THERAPY. FURTHER TREATMENT OF REANL STONE TO BE DETERMINED - Date & Time of Note Date: 03/14/17 Time: 08:15
[2017-03-15] MEDS: Cefepime IV 1 gm in Dextrose 1 GM/50 ML BAG IVPB SCH ×2 (05:59→18:12)
[2017-03-15] MEDS: Multivitamin With Minerals Tab PO SCH (09:14)
--- NOTE | 2017-03-15 10:54 | CP.PCM.PN ---
Subjective - Date & Time of Evaluation Date of Evaluation: 03/15/17 Time of Evaluation: 08:00 - Subjective Subjective: iv rx in progress no longer febrile oob to chair Objective - Vital Signs/Intake and Output Vital Signs (last 24 hours): Temp Pulse Resp BP Pulse Ox 98.7 F 101 H 26 H 113/73 100 03/15/17 08:40 03/15/17 08:40 03/15/17 08:40 03/15/17 08:40 03/15/17 08:40 Intake and Output: 03/15/17 03/15/17 06:59 18:59 Intake Total 750 Output Total 1400 Balance -650 - Medications Medications: Current Medications Acetaminophen (Tylenol 325mg Tab) 650 mg PO Q4 PRN PRN Reason: Fever >101F Last Admin: 03/14/17 00:44 Dose: 650 mg Docusate Sodium (Colace) 100 mg PO TID [facility] Last Admin: 03/15/17 09:13 Dose: 100 mg Cefepime HCl (Maxipime Iv 1 Gm Premix) 1 gm in 50 mls @ 100 mls/hr IVPB Q12H [facility] Last Admin: 03/15/17 05:59 Dose: 100 mls/hr Multivitamins/Minerals (Therapeutic-M Tab) 1 tab PO DAILY [facility] Last Admin: 03/15/17 09:14 Dose: 1 tab - Labs Labs: 03/14/17 08:43 03/14/17 08:43 PT 13.2 SECONDS (9.7-12.2) H 03/10/17 08:27 INR 1.2 03/10/17 08:27 APTT 28 SECONDS (21-34) 03/10/17 08:27 - Constitutional Appears: Non-toxic - Head Exam Head Exam: NORMOCEPHALIC - Eye Exam Eye Exam: PERRL. absent: Scleral icterus - ENT Exam ENT Exam: Mucous Membranes Dry - Neck Exam Neck Exam: absent: Lymphadenopathy - Respiratory Exam Respiratory Exam: Decreased Breath Sounds, Rhonchi - Cardiovascular Exam Cardiovascular Exam: REGULAR RHYTHM - GI/Abdominal Exam GI & Abdominal Exam: Distended, Soft - Rectal Exam Rectal Exam: Deferred - Exam Exam: NORMAL INSPECTION - Extremities Exam Extremities Exam: Full ROM - Back Exam Back Exam: absent: CVA tenderness (L), CVA tenderness (R) Assessment and Plan (1) Nephrostomy status Status: Acute (2) Nephrostomy status Status: Acute (3) UTI (urinary tract infection) Status: Acute (4) Fever Status: Acute (5) Fever Status: Acute
[2017-03-16] MEDS: Cefepime IV 1 gm in Dextrose 1 GM/50 ML BAG IVPB SCH ×2 (05:44→18:16)
[2017-03-16] MEDS: Multivitamin With Minerals Tab PO SCH (09:33)
--- NOTE | 2017-03-16 10:23 | CP.PCM.PN ---
Subjective - Date & Time of Evaluation Date of Evaluation: 03/16/17 Time of Evaluation: 07:00 - Subjective Subjective: wbc trending down afebrile pain improved Objective - Vital Signs/Intake and Output Vital Signs (last 24 hours): Temp Pulse Resp BP Pulse Ox 98.5 F 94 H 20 109/74 100 03/16/17 07:00 03/16/17 07:00 03/16/17 07:00 03/16/17 07:00 03/16/17 07:00 Intake and Output: 03/16/17 03/16/17 06:59 18:59 Intake Total 1050 Output Total 1675 Balance -625 - Medications Medications: Current Medications Acetaminophen (Tylenol 325mg Tab) 650 mg PO Q4 PRN PRN Reason: Fever >101F Last Admin: 03/14/17 00:44 Dose: 650 mg Docusate Sodium (Colace) 100 mg PO TID [facility] Last Admin: 03/16/17 09:33 Dose: 100 mg Cefepime HCl (Maxipime Iv 1 Gm Premix) 1 gm in 50 mls @ 100 mls/hr IVPB Q12H [facility] Last Admin: 03/16/17 05:44 Dose: 100 mls/hr Multivitamins/Minerals (Therapeutic-M Tab) 1 tab PO DAILY [facility] Last Admin: 03/16/17 09:33 Dose: 1 tab - Labs Labs: 03/14/17 08:43 03/14/17 08:43 PT 13.2 SECONDS (9.7-12.2) H 03/10/17 08:27 INR 1.2 03/10/17 08:27 APTT 28 SECONDS (21-34) 03/10/17 08:27 - Constitutional Appears: Non-toxic, Chronically Ill - Head Exam Head Exam: NORMOCEPHALIC - Eye Exam Eye Exam: absent: Scleral icterus - ENT Exam ENT Exam: Mucous Membranes Dry - Neck Exam Neck Exam: absent: Lymphadenopathy - Respiratory Exam Respiratory Exam: Decreased Breath Sounds - Cardiovascular Exam Cardiovascular Exam: REGULAR RHYTHM - GI/Abdominal Exam GI & Abdominal Exam: Distended Assessment and Plan (1) Nephrostomy status Status: Acute (2) Nephrostomy status Status: Acute (3) UTI (urinary tract infection) Status: Acute (4) Fever Status: Acute (5) Fever Status: Acute
--- NOTE | 2017-03-16 16:28 | PCM.URO ---
Urology Progress Note - Objective Intake & Output: Intake & Output 03/15/17 03/16/17 03/16/17 18:59 06:59 18:59 Intake Total 250 1050 400 Output Total 577 8000 425 Balance -325 -625 -25 Intake: Intake, IV Amount 100 Right Antecubital 100 Oral 250 950 400 Output: Drainage 175 375 75 Left Lower 175 375 75 Urine 400 1300 350 Urine, Voided 400 1300 350 Other: # Voids Urine, Voided 2 2 2 Vital Signs: Vital Signs - 24 hr 03/16/17 03/16/17 03/16/17 00:13 07:00 16:02 Temperature 98.8 F 98.5 F 99.5 F Pulse Rate 101 H 94 H 105 H Respiratory 18 20 18 Rate Blood Pressure 105/69 109/74 118/72 O2 Sat by Pulse 98 100 100 Oximetry
--- NOTE | 2017-03-16 20:28 | PCM.URO ---
Urology Progress Note - General General: Tolerating Diet - Subjective Abdominal Pain: No Flank Pain: Yes (mild) Nausea: No Vomiting: No Voiding Well: Yes Dysuria: No Hematuria: Yes (slight via NT) Good Stream: Yes Stone Passed: No Fever & Chills: No - Objective Lab Studies: Reviewed Intake & Output: Intake & Output 03/16/17 03/16/17 03/17/17 06:59 18:59 06:59 Intake Total 1050 400 Output Total 1675 425 Balance -625 -25 Intake: Intake, IV Amount 100 Right Antecubital 100 Oral 950 400 Output: Drainage 375 75 Left Lower 375 75 Urine 1300 350 Urine, Voided 1300 350 Other: # Voids Urine, Voided 2 2 Vital Signs: Vital Signs - 24 hr 03/16/17 03/16/17 03/16/17 00:13 07:00 16:02 Temperature 98.8 F 98.5 F 99.5 F Pulse Rate 101 H 94 H 105 H Respiratory 18 20 18 Rate Blood Pressure 105/69 109/74 118/72 O2 Sat by Pulse 98 100 100 Oximetry - Physical Exam Abdominal Exam: Soft, Non-Tender, Non-Distended Wound: Clean Back: No CVA Tenderness Urinary Catheter Draining Well: Yes (almost clear) Extremities: Normal: Bilateral - Plan Additional Information: Imp: imrpved re fever. uto L renal staghorn calculus. Plan: antibiotic rx. YS. 03/15/2017. 8:[address] - Date & Time of Note Date: 03/15/17 Time: 08:30
[2017-03-17] MEDS: Cefepime IV 1 gm in Dextrose 1 GM/50 ML BAG IVPB SCH ×2 (05:43→18:19)
[2017-03-17] MEDS: Multivitamin With Minerals Tab PO SCH (10:27)
--- NOTE | 2017-03-17 11:52 | PCM.SURG1 ---
Surgeon's Initial Post Op Note - Surgeon's Notes Surgeon: Marcio Dee MD Poultry Trimmer: None Type of Anesthesia: None Pre-Operative Diagnosis: Renal stone Operative Findings: Left nephrostomy tube in lower pole calyx. PCN is within the renal collecting system. Post-Operative Diagnosis: Renal stone Operation Performed: Nephrostogram. Specimen/Specimens Removed: none Estimated Blood Loss: EBL {In ML}: 0 Blood Products Given: N/A Drains Used: No Drains Post-Op Condition: Good Date of Surgery/Procedure: 03/17/17 Time of Surgery/Procedure: 11:45
--- NOTE | 2017-03-17 11:57 | PCM.URO ---
Urology Progress Note - General General: No Complaints, Tolerating Diet - Subjective Abdominal Pain: No Flank Pain: Yes (mild) Nausea: No Vomiting: No Voiding Well: Yes Dysuria: No Hematuria: No Good Stream: Yes Weak Stream: Yes Dsypnea: No Chest Pain: No Fever & Chills: No Other: had normal BM - Objective Lab Studies: Reviewed Lab Results Last 24 Hours: Laboratory Results - last 24 hr 03/17/17 11:17 Urine HCG, Qual Negative Intake & Output: Intake & Output 03/16/17 03/17/17 03/17/17 18:59 06:59 18:59 Intake Total 400 850 Output Total 425 2049 Balance -25 -1200 Intake: Intake, IV Amount 50 Right Antecubital 50 Oral 400 800 Output: Drainage 75 450 Left Lower 75 450 Urine 350 1600 Urine, Voided 350 1600 Other: # Voids Urine, Voided 2 # Bowel Movements 0 Vital Signs: Vital Signs - 24 hr 03/16/17 03/16/17 03/17/17 16:02 23:50 07:15 Temperature 99.5 F 98.1 F 98 F Pulse Rate 105 H 88 85 Respiratory 18 20 18 Rate Blood Pressure 118/72 106/61 93/63 L O2 Sat by Pulse 100 97 99 Oximetry - Physical Exam Abdominal Exam: Soft, Non-Tender, Non-Distended Bowel Sounds: Normal Wound: Healing Well Back: No CVA Tenderness Urinary Catheter Draining Well: Yes Urine Color: Yellow - Plan Additional Information: imp: progressing well. uti improving. uroloithiasis - Date & Time of Note Date: 03/17/17 Time: 11:56
[2017-03-17 16:56] VITALS: RESP 20
[2017-03-17] MEDS ORDERED: Oxycodone/Acetaminophen 5/325 mg Tab PO PRN (20:33)
[2017-03-17] MEDS: Oxycodone/Acetaminophen 5/325 mg Tab PO PRN (20:39)
[2017-03-18] MEDS: Cefepime IV 1 gm in Dextrose 1 GM/50 ML BAG IVPB SCH ×2 (06:03→17:59)
[2017-03-18] MEDS: Multivitamin With Minerals Tab PO SCH (09:22)
[2017-03-18] MEDS: Oxycodone/Acetaminophen 5/325 mg Tab PO PRN (09:23)
--- NOTE | 2017-03-18 16:17 | PCM.URO ---
Urology Progress Note - Objective Intake & Output: Intake & Output 03/17/17 03/18/17 03/18/17 18:59 06:59 18:59 Intake Total 450 450 Output Total 200 200 300 Balance -200 250 150 Intake: Intake, IV Amount 50 50 Right Antecubital 50 50 Oral 400 400 Output: Drainage 200 200 300 Left Lower 200 200 300 Other: # Voids Urine, Voided 1 1 2 # Bowel Movements 0 Vital Signs: Vital Signs - 24 hr 03/18/17 03/18/17 00:00 08:02 Temperature 98.2 F 98.7 F Pulse Rate 91 H 90 Respiratory 20 20 Rate Blood Pressure 96/62 L 106/75 O2 Sat by Pulse 98 98 Oximetry
--- NOTE | 2017-03-18 18:15 | CP.PCM.PN ---
Subjective - Date & Time of Evaluation Date of Evaluation: 03/18/17 Time of Evaluation: 09:00 - Subjective Subjective: discussed on rounds grew pansensitive e coli in urine for d/c on PO rx keflex Objective - Vital Signs/Intake and Output Vital Signs (last 24 hours): Temp Pulse Resp BP Pulse Ox 98.2 F 77 20 114/71 99 03/18/17 15:00 03/18/17 15:00 03/18/17 15:00 03/18/17 15:00 03/18/17 15:00 Intake and Output: 03/18/17 03/18/17 06:59 18:59 Intake Total 450 450 Output Total 200 300 Balance 250 150 - Medications Medications: Current Medications Acetaminophen (Tylenol 325mg Tab) 650 mg PO Q4 PRN PRN Reason: Fever >101F Last Admin: 03/14/17 00:44 Dose: 650 mg Docusate Sodium (Colace) 100 mg PO TID [facility] Last Admin: 03/18/17 17:58 Dose: 100 mg Cefepime HCl (Maxipime Iv 1 Gm Premix) 1 gm in 50 mls @ 100 mls/hr IVPB Q12H [facility] Last Admin: 03/18/17 17:59 Dose: 100 mls/hr Multivitamins/Minerals (Therapeutic-M Tab) 1 tab PO DAILY [facility] Last Admin: 03/18/17 09:22 Dose: 1 tab Oxycodone/Acetaminophen (Percocet 5/325 Mg Tab) 2 tab PO Q4H PRN PRN Reason: Pain, moderate (4-7) Stop: 03/20/17 20:31 Last Admin: 03/18/17 09:23 Dose: 2 tab Oxycodone/Acetaminophen (Percocet 5/325 Mg Tab) 1 tab PO Q4H PRN PRN Reason: Pain, Mild (1-3) Stop: 03/20/17 20:34 Last Admin: 03/18/17 14:00 Dose: 1 tab - Labs Labs: 03/14/17 08:43 03/14/17 08:43 PT 13.2 SECONDS (9.7-12.2) H 03/10/17 08:27 INR 1.2 03/10/17 08:27 APTT 28 SECONDS (21-34) 03/10/17 08:27 - Constitutional Appears: Non-toxic, Chronically Ill - Head Exam Head Exam: NORMOCEPHALIC - Eye Exam Eye Exam: absent: Scleral icterus - ENT Exam ENT Exam: Mucous Membranes Dry, Normal External Ear Exam - Neck Exam Neck Exam: absent: Lymphadenopathy - Respiratory Exam Respiratory Exam: Decreased Breath Sounds - Cardiovascular Exam Cardiovascular Exam: REGULAR RHYTHM - GI/Abdominal Exam GI & Abdominal Exam: Distended Assessment and Plan (1) Nephrostomy status Status: Acute (2) Nephrostomy status Status: Acute (3) UTI (urinary tract infection) Status: Acute (4) Fever Status: Acute (5) Fever Status: Acute
[2017-03-19] MEDS: Cefepime IV 1 gm in Dextrose 1 GM/50 ML BAG IVPB SCH (05:44)
--- NOTE | 2017-03-19 07:14 | PCM.URO ---
Urology Progress Note - General General: No Complaints, Tolerating Diet - Subjective Abdominal Pain: No Flank Pain: No Voiding Well: Yes Hematuria: No Stone Passed: No Dsypnea: No Chest Pain: No Fever & Chills: No - Objective Intake & Output: Intake & Output 03/18/17 03/19/17 03/19/17 18:59 06:59 18:59 Intake Total 450 400 Output Total 300 350 Balance 150 50 Intake: Intake, IV Amount 50 100 Right Antecubital 50 100 Oral 400 300 Output: Drainage 300 350 Left Lower 300 350 Other: # Voids Urine, Voided 2 # Bowel Movements 0 Vital Signs: Vital Signs - 24 hr 03/18/17 03/18/17 03/19/17 08:02 15:00 00:00 Temperature 98.7 F 98.2 F 99.3 F Pulse Rate 90 77 100 H Respiratory 20 20 20 Rate Blood Pressure 106/75 114/71 101/73 O2 Sat by Pulse 98 99 98 Oximetry - Physical Exam Abdominal Exam: Soft, Non-Tender, Non-Distended Dressing: Dry, Intact Back: No CVA Tenderness - Plan Additional Information: imp: doing nwell. plan: home today. outpt f/u. antibiotic rx - cipro acc to culture (proteus). discussed w pt. discussed w ID [employer] consultant - Date & Time of Note Date: 03/19/17 Time: 07:14
[2017-03-19 07:47] VITALS: BP 105/70; PULSE 79; TEMP 98.6; O2SAT 100
[2017-03-19] MEDS: Multivitamin With Minerals Tab PO SCH (09:38)
--- NOTE | 2017-03-22 14:10 | SPECPROC ---
PROCEDURE: < Date of procedure: 03/17/2017 Procedure: 1. Left nephrostogram, CPT 96577 2. Left percutaneous nephrostomy tube placement, CPT 44471 Medications: 6 cubic centimeters 2 percent lidocaine HISTORY: Ureteral obstruction, hydronephrosis, percutaneous nephrostomy tube TECHNIQUE: Following informed consent and procedure time-out, the patient was placed prone on the interventional table and the skin was marked. The left lower back were prepped and draped in the usual sterile fashion. The lower back was anesthetized with 5 cc 1% lidocaine. Nephrostogram performed through existing large nephrostomy tube showed position within the lower collecting system. IMPRESSION: Nephrostogram performed through existing nephrostomy tube shows position within the renal collecting system. There is no significant hydronephrosis.
== END 2017-03-19 15:30 | disposition home or self-care (01) | DRG 694 ==
LOC: C.3T 07:22 → C.ER 07:22 → C.SDS 09:19 → C.6T 12:56 → C.3T 03-17 15:02
PROVIDERS: ADMIT Urology; ATTEND Urology
PROC: 0TJ53ZZ Inspection of Kidney, Percutaneous Approach (ICD-10-PCS; 2017-03-10)
PROC: 0T9130Z Drainage of Left Kidney with Drainage Device, Percutaneous Approach (ICD-10-PCS; principal; 2017-03-10 09:00)
PROC: BT0 Imaging, Urinary System, Plain Radiography (ICD-10-PCS; 2017-03-17)
DX: N20.0 Calculus of kidney (principal); Z93.6 Other artificial openings of urinary tract status; N39.0 Urinary tract infection, site not specified; N18.9 Chronic kidney disease, unspecified; D64.9 Anemia, unspecified; R31.9 Hematuria, unspecified; B96.20 Unspecified Escherichia coli [E. coli] as the cause of diseases classified elsewhere

== ENCOUNTER 2017-03-26 08:43 | Inpatient (IN) | payer OTHER ==
[2017-03-04 09:26] VITALS: BMI 34.0
[2017-03-26 09:22] LABS: BASO % 0.5 % (0.0-2.0); EOS # 0.4 K/uL (0.0-0.7); EOS % 4.5 % (0.0-4.0); HEMATOCRIT 30.6 % (34.0-47.0); LYMPH # 2.5 K/uL (1.0-4.3); LYMPH % 30.1 % (20.0-40.0); MEAN CORPUSCULAR HEMOGLOBIN 23.7 pg (27.0-31.0); MEAN CORPUSCULAR HGB CONC 30.8 g/dL (33.0-37.0); MEAN PLATELET VOLUME 11.1 fL (7.2-11.7); MONO # 0.4 K/uL (0.0-0.8); MONO % 4.3 % (0.0-10.0); RED CELL DISTRIBUTION WIDTH 14.6 % (11.5-14.5); WHITE BLOOD COUNT 8.3 K/uL (4.8-10.8)
[2017-03-26 09:28] LABS: CHLORIDE 103 mmol/L (98-107); POTASSIUM 3.8 mmol/L (3.6-5.2); SODIUM 143 mmol/L (132-148)
[2017-03-26 09:31] LABS: CARBON DIOXIDE 27 mmol/L (22-30); GFR AFRICAN-AMERICAN > 60
[2017-03-26 09:32] LABS: BLOOD UREA NITROGEN 12 mg/dL (7-17); CALCIUM 9.1 mg/dl (8.6-10.4); GLUCOSE,RANDOM 94 mg/dL (65-105)
[2017-03-26] MEDS ORDERED: cefTRIAXone IV 1 gm in Dextros 50 ML IVPB ONE (10:50)
[2017-03-26] MEDS: Lactated Ringer's 1,000 ML IV ONE (11:20)
[2017-03-26] MEDS ORDERED: Lactated Ringer's 1,000 ML IV ONE (11:20)
[2017-03-26] MEDS: Iohexol 240 200 ML IJ ONE ×2 (11:23→13:20)
[2017-03-26] MEDS: Bupivacaine 0.5% Inj(30mL) ONE ×2 (11:23→13:20)
[2017-03-26] MEDS ORDERED: Midazolam 2 MG/2 ML VIAL ONE (11:31)
[2017-03-26] MEDS ORDERED: Propofol 10 mg/ml Inj (20 ML) ONE (11:31)
[2017-03-26] MEDS ORDERED: Rocuronium 10 mg/ml (10 ml) ONE (11:34)
[2017-03-26] MEDS ORDERED: Gentamicin 80 mg in 0.9% NS 80 MG/100 ML BAG IVPB ONE (11:53)
[2017-03-26] MEDS ORDERED: Phenylephrine 10 mg/ml Inj ONE (12:17)
[2017-03-26] MEDS ORDERED: Neostigmine Methylsulfate 3mg/3ml Syringe IV ONE (13:08)
[2017-03-26] MEDS: HYDROmorphone 0.5 mg/0.5 ml ISec IVP PRN ×6 (13:48→17:30)
--- NOTE | 2017-03-26 14:20 | PCM.SURG1 ---
Surgeon's Initial Post Op Note - Surgeon's Notes Surgeon: sher marin Bak[employer] Chef: callum carey Type of Anesthesia: General Endo Pre-Operative Diagnosis: L renal staghorn calculus Operative Findings: SAME Post-Operative Diagnosis: SAME Operation Performed: L PERCUTANEOUS NEPHROSTOMY TUBE ACESS. PERCUTANEOUS NEPHROLITHOTOMY AND ULTRASONIC LITHOTRIPSY. NEPHROSTOGRAM Specimen/Specimens Removed: URINE. STONES Estimated Blood Loss: EBL {In ML}: 150 Post-Op Condition: Good Date of Surgery/Procedure: 03/26/17 Time of Surgery/Procedure: 13:40
[2017-03-26] MEDS ORDERED: Oxycodone/Acetaminophen 5/325 mg Tab PO PRN (15:07)
--- NOTE | 2017-03-26 17:04 | RAD ---
PROCEDURE: Intraoperative Fluoroscopy. HISTORY: LEFT KIDNEY STONE FINDINGS: Fluoroscopic assistance was provided. Approximately 526.5 seconds fluoroscopy time utilized during this procedure. Radiation dose = 1.97 mGy-cm Please refer to the operative report for additional details.
[2017-03-26] MEDS: Potassium Ch 20mEq in D5-1/2NS 1,000 ML IV SCH ×2 (18:00→21:50)
[2017-03-26] MEDS: Morphine 4 MG/ML VIAL IVP PRN (19:07)
[2017-03-27] MEDS: Morphine 4 MG/ML VIAL IVP PRN
[2017-03-27] MEDS: Potassium Ch 20mEq in D5-1/2NS 1,000 ML IV SCH ×3 (06:21→17:35)
[2017-03-27 06:34] LABS: HEMATOCRIT 25.9 % (34.0-47.0); MEAN CELL VOLUME 76.8 fL (81.0-99.0); MEAN CORPUSCULAR HEMOGLOBIN 24.1 pg (27.0-31.0); MEAN CORPUSCULAR HGB CONC 31.4 g/dL (33.0-37.0); MEAN PLATELET VOLUME 11.5 fL (7.2-11.7); RED CELL DISTRIBUTION WIDTH 14.2 % (11.5-14.5); WHITE BLOOD COUNT 11.8 K/uL (4.8-10.8)
[2017-03-27 06:53] LABS: CHLORIDE 95 mmol/L (98-107); POTASSIUM 3.7 mmol/L (3.6-5.2); SODIUM 133 mmol/L (132-148)
[2017-03-27 06:56] LABS: BLOOD UREA NITROGEN 9 mg/dL (7-17); CARBON DIOXIDE 28 mmol/L (22-30); GFR AFRICAN-AMERICAN > 60
[2017-03-27 06:57] LABS: GLUCOSE,RANDOM 110 mg/dL (65-105)
[2017-03-27] MEDS: Oxycodone/Acetaminophen 5/325 mg Tab PO PRN ×3 (09:45→22:37)
[2017-03-27] MEDS: cefTRIAXone IV 1 gm in Dextros 50 ML IVPB SCH (10:40)
[2017-03-28 00:34] VITALS: RESP 20
[2017-03-28] MEDS: Potassium Ch 20mEq in D5-1/2NS 1,000 ML IV SCH (03:00)
[2017-03-28] MEDS: Oxycodone/Acetaminophen 5/325 mg Tab PO PRN (07:02)
[2017-03-28 09:33] VITALS: BP 92/61; PULSE 84; TEMP 99.2; O2SAT 97
[2017-03-28] MEDS: cefTRIAXone IV 1 gm in Dextros 50 ML IVPB SCH (10:52)
--- NOTE | 2017-03-28 12:00 | PCM.URO ---
Urology Progress Note - General General: No Complaints, Tolerating Diet - Subjective Abdominal Pain: No Flank Pain: Yes Vomiting: No Voiding Well: Yes (CLEAR URINE) Dysuria: No Hematuria: Yes (SL PINK VIA NT) Frequency: No Good Stream: No Weak Stream: No Stone Passed: No Dsypnea: No Chest Pain: No Fever & Chills: No - Objective Lab Studies: Reviewed Intake & Output: Intake & Output 03/27/17 03/28/17 03/28/17 18:59 06:59 18:59 Intake Total 1180 2260 Output Total 350 650 Balance 830 1610 Intake: Intake, IV Amount 700 1600 Right Antecubital 700 1600 Oral 480 660 Output: Drainage 350 450 Left Lower 350 450 Urine 200 Urine, Voided 200 Other: # Voids Urethral (Akers) 4 Urine, Voided 1 # Bowel Movements 0 Vital Signs: Vital Signs - 24 hr 03/27/17 03/27/17 03/28/17 15:35 23:05 09:32 Temperature 98.1 F 98.9 F 99.2 F Pulse Rate 92 H 89 84 Respiratory 18 20 20 Rate Blood Pressure 104/65 98/63 L 92/61 L O2 Sat by Pulse 100 98 97 Oximetry - Physical Exam Abdominal Exam: Soft, Non-Tender, Non-Distended Bowel Sounds: Normal Wound: Clean, Healing Well (LUNGS: CLEAR HEART- REG RHYTHM) - Plan Catheter Care: Yes Ambulation - Out of Bed: Yes Intake & Output: Yes Additional Information: HOME TODAY. OUTPT F/U ANTIBIOTIC RX. DISCUSSED W PT, DAUGHTER, NURSING STAFF - Date & Time of Note Date: 03/28/17 Time: 12:00
--- NOTE | 2017-03-28 14:36 | CP.PCM.CON ---
History of Present Illness - History of Present Illness History of Present Illness: HX OF NEPHROLITHIASIS/ STAGHORN CALCULI S/P L PERCUTANEOUS NEPHROSTOMY TUBE ACESS. PERCUTANEOUS NEPHROLITHOTOMY AND ULTRASONIC LITHOTRIPSY. NEPHROSTOGRAM CULTURES REVIEWED Review of Systems - Constitutional Constitutional: As Per HPI - EENT Eyes: absent: As Per HPI, Blind Spots, Blurred Vision, Change in Vision, Decreased Night Vision, Diplopia, Discharge, Dry Eye, Exophthalmos, Floaters, Irritation, Itchy Eyes, Loss of Peripheral Vision, Pain, Photophobia, Requires Corrective Lenses, Sees Flashes, Spots in Vision, Tunnel Vision, Other Visual Disturbances, Loss of Vision, Other Ears: absent: As Per HPI, Decreased Hearing, Ear Discharge, Ear Pain, Tinnitus, Abnormal Hearing, Disequilibrium, Dizziness, Other Nose/Mouth/Throat: absent: As Per HPI, Epistaxis, Nasal Congestion, Nasal Discharge, Nasal Obstruction, Nasal Trauma, Nose Pain, Post Nasal Drip, Sinus Pain, Sinus Pressure, Bleeding Gums, Change in Voice, Dental Pain, Dry Mouth, Dysphagia, Halitosis, Hoarsness, Lip Swelling, Mouth Lesions, Mouth Pain, Odynophagia, Sore Throat, Throat Swelling, Tongue Swelling, Facial Pain, Neck Pain, Neck Mass, Other - Breasts Breasts: absent: As Per HPI, Change in Shape, Mass, Pain, Nipple Discharge, Nipple Inversion, Skin Changes, Swelling, Other - Cardiovascular Cardiovascular: absent: As Per HPI, Acrocyanosis, Chest Pain, Chest Pain at Rest , Chest Pain with Activity, Claudication, Diaphoresis, Dyspnea, Dyspnea on Exertion, Edema, Irregular Heart Rhythm, Pain Radiating to Arm/Neck/Jaw, Leg Edema, Leg Ulcers, Lightheadedness, Orthopnea, Palpitations, Paroxysmal Nocturnal Dyspnea, Pedal Edema, Radiating Pain, Rapid Heart Rate, Slow Heart Rate, Syncope, Other - Respiratory Respiratory: absent: As Per HPI, Cough, Dyspnea, Hemoptysis, Dyspnea on Exertion , Wheezing, Snoring, Stridor, Pain on Inspiration, Chest Congestion, Excessive Mucous Production, Change in Mucous Color, Pain with Coughing, Other - Gastrointestinal Gastrointestinal: absent: As Per HPI, Abdominal Pain, Belching, Bloating, Change in Bowel Habits, Change in Stool Character, Coffee Ground Emesis, Constipation, Cramping, Diarrhea, Dyspepsia, Dysphagia, Early Satiety, Excessive Flatus, Fecal Incontinence, Heartburn, Hematemesis, Hematochezia, Loose Stools, Melena, Nausea, Odynophagia, Temesmus, Vomiting, Other - Genitourinary Genitourinary: As Per HPI, Flank Pain, Hematuria, Urinary Frequency, Hx / Renal Surgery - Reproductive: Female Reproductive:Female: absent: As Per HPI, Amenorrhea, Amenorrhea/ Control, Currently Menstual, Cycle <21 Days, Cycle >35 Days, Cycle Variable, Menses 1-7 Days, Menses >/= 8 Days, Menses Variable, Cycle > 4 Weeks Between, No Menses for 6 Months, Heavy Menses, Light Menses, Normal Menses, Spotting Between Cycles , S/P Hysterectomy, Menopausal, Post Menopausal, Premenarche, Abnormal Vaginal Bleeding, Dysmenorrhea, Dyspareunia, Genital Lesions, Genital Pruritis, Pelvic Pain, Prolapse Symptoms, Sexual Dysfunction, Vaginal Discharge, Vaginal Dryness , Vaginal Odor, Vaginal Pruritis, Other - Menstruation Menstruation: absent: As Per HPI, Amenorrhea, Amenorrhea/ Control, Currently Menstual, Cycle <21 Days, Cycle >35 Days, Cycle Variable, Menses 1-7 Days, Menses >/= 8 Days, Menses Variable, Cycle > 4 Weeks Between, No Menses for 6 Months, Heavy Menses, Light Menses, Normal Menses, Spotting Between Cycles , S/P Hysterectomy, Menopausal, Post Menopausal, Premenarche, Abnormal Vaginal Bleeding, Dysmenorrhea, Other - Musculoskeletal Musculoskeletal: absent: As Per HPI, Abnormal Gait, Arthralgias, Atrophy, Back Pain, Deformity, Joint Swelling, Limited Range of Motion, Loss of Height, Muscle Cramps, Muscle Weakness, Myalgias, Neck Pain, Numbness, Radiating Pain into Limb, Stiffness, Tingling, Other - Integumentary Integumentary: absent: As Per HPI, Acne, Alopecia, Bleeding Lesions, Change in Hair, Change in Nails, Change in Pigmentation, Changing Lesions, Dry Skin, Erythema, Furuncle, Hirsutism, Lesions, New Lesions, Non-Healing Lesions, Photosensitivity, Pruritus, Rash, Skin Pain, Skin Ulcer, Sores, Striae, Swelling , Unusual Bruising, Wounds, Jaundice, Other - Neurological Neurological: absent: As Per HPI, Abnormal Gait, Abnormal Hearing, Abnormal Movements, Abnormal Speech, Behavioral Changes, Burning Sensations, Confusion, Convulsions, Disequilibrium, Dizziness, Numbness, Focal Weakness, Frequent Falls , Headaches, Lack of Coordination, Loss of Vision, Memory Loss, Paresthesias, Radicular Pain, Restless Legs, Sensory Deficit, Syncope, Tingling, Tremor, Vertigo, Weakness, Other Visual Disturbances, Other - Psychiatric Psychiatric: absent: As Per HPI, Abnormal Sleep Pattern, Anhedonia, Anxiety, Auditory Hallucinations, Behavioral Changes, Change in Appetite, Change in Libido, Confusion, Depression, Difficulty Concentrating, Hallucinations, Homicidal Ideation, Hopelessness, Irritability, Memory Loss, Mood Swings, Panic Attacks, Paranoia, Suicidal Ideation, Visual Hallucinations, Tactile Hallucinations, Other - Endocrine Endocrine: absent: As Per HPI, Change in Body Appearance, Change in Libido, Cold Intolorance, Deepening of Voice, Excessive Sweating, Fatigue, Flushing, Heat Intolorance, Increase in Ring/Shoe/Hat Size, Palpitations, Polydipsia, Polyphagia, Polyuria, Other - Hematologic/Lymphatic Hematologic: absent: As Per HPI, Easy Bleeding, Easy Bruising, Lymphadenopathy, Other Past Patient History - Infectious Disease Hx of Infectious Diseases: None - Past Medical History & Family History Past Medical History?: Yes - Past Social History Smoking Status: Never Smoked - CARDIAC Hx Cardiac Disorders: No - PULMONARY Hx Respiratory Disorders: No - NEUROLOGICAL Hx Neurological Disorder: No - HEENT Hx HEENT Problems: No - RENAL Hx Chronic Kidney Disease: Yes Hx Kidney Stones: Yes Other/Comment: uti, sepsis - ENDOCRINE/METABOLIC Hx Endocrine Disorders: No - HEMATOLOGICAL/ONCOLOGICAL Hx Blood Disorders: Yes Hx Anemia: Yes - INTEGUMENTARY Hx Dermatological Problems: No - MUSCULOSKELETAL/RHEUMATOLOGICAL Hx Falls: No - GASTROINTESTINAL Hx Gastrointestinal Disorders: Yes Other/Comment: constipation - GENITOURINARY/GYNECOLOGICAL Hx Genitourinary Disorders: Yes Hx Hematuria: Yes Other/Comment: KIDNEY STONES - PSYCHIATRIC Hx Substance Use: No - SURGICAL HISTORY Hx Surgeries: Yes Hx Section: Yes (X3) Other/Comment: INSERTION NEPHROSTOMY TUBE LEFT - ANESTHESIA Hx Anesthesia: Yes Hx Anesthesia Reactions: No Hx Malignant Hyperthermia: No Has any member of the family had a problem w/ anesthesia?: No Meds Allergies/Adverse Reactions: Allergies Allergy/AdvReac Type Severity Reaction Status Date / Time No Known Allergies Allergy Verified 03/26/17 09:05 - Medications Medications: Current Medications Docusate Sodium (Colace) 100 mg PO TID [facility] Last Admin: 03/28/17 13:05 Dose: 100 mg Ceftriaxone Sodium (Rocephin Iv 1 Gm Duplex) 50 mls @ 100 mls/hr IVPB DAILY [facility] Last Admin: 03/28/17 10:52 Dose: 100 mls/hr Potassium Chloride/Dextrose/Sod Cl (Potassium Chl 20 Meq In D5-1/2ns) 1,000 mls @ 100 mls/hr IV .Q10H [facility] Last Admin: 03/28/17 03:00 Dose: Not Given Morphine Sulfate (Morphine) 4 mg IVP Q4 PRN PRN Reason: pain Last Admin: 03/27/17 00:00 Dose: 4 mg Oxycodone/Acetaminophen (Percocet 5/325 Mg Tab) 1 tab PO Q4H PRN PRN Reason: Pain, moderate (4-7) Stop: 03/29/17 15:06 Last Admin: 03/28/17 07:02 Dose: 1 tab Oxycodone/Acetaminophen (Percocet 5/325 Mg Tab) 2 tab PO Q4H PRN PRN Reason: Pain, severe (8-10) Stop: 03/29/17 15:08 Physical Exam - Constitutional Appears: Non-toxic, Chronically Ill - Head Exam Head Exam: NORMOCEPHALIC - Eye Exam Eye Exam: PERRL. absent: Scleral icterus - ENT Exam ENT Exam: Mucous Membranes Dry, Normal External Ear Exam - Neck Exam Neck exam: Negative for: Lymphadenopathy - Respiratory Exam Respiratory Exam: Decreased Breath Sounds, Clear to Auscultation Bilateral - Cardiovascular Exam Cardiovascular Exam: REGULAR RHYTHM, +S1, +S2 - GI/Abdominal Exam GI & Abdominal Exam: Diminished Bowel Sounds, Soft. absent: Tenderness - Rectal Exam Rectal Exam: Deferred - Exam Exam: NORMAL INSPECTION - Extremities Exam Extremities exam: Negative for: pedal edema - Back Exam Back exam: CVA tenderness (L). absent: CVA tenderness (R) - Neurological Exam Neurological exam: Alert, CN II-XII Intact, Oriented x3, Reflexes Normal - Psychiatric Exam Psychiatric exam: Normal Mood - Skin Skin Exam: Dry Results - Vital Signs Recent Vital Signs: Last Vital Signs Temp 99.2 F 03/28/17 09:32 Pulse 84 03/28/17 09:32 Resp 20 03/28/17 09:32 BP 92/61 L 03/28/17 09:32 Pulse Ox 97 03/28/17 09:32 - Labs Result Diagrams: 03/27/17 06:24 03/27/17 06:24 Assessment & Plan (1) Nephrostomy status Status: Acute (2) UTI (urinary tract infection) Status: Acute - Assessment and Plan (Free Text) Assessment: FOR D/C ON ANTIBIOTICS CULTURES REVIEWED PO RX TO CONT FOLLOW UP
--- NOTE | 2017-03-28 21:08 | OP ---
PROCEDURE DATE: 03/26/2017 DATE OF PROCEDURE: 03/26/2017 PREOPERATIVE DIAGNOSES: Left renal staghorn calculus. POSTOPERATIVE DIAGNOSES: Left renal staghorn calculus. PROCEDURE: Left percutaneous nephrostomy tube insertion. Left percutaneous nephrostomy tract dilati on. Left percutaneous nephrolithotomy with ultrasonic lithotripsy. Nephrostogram. Procedure was performed under video endoscopic control as well as under fluoroscopic control with C-a rm. OPERATING SURGEON: Dr. Carole Seth. ARTS EDUCATION TEACHER: Dr. Sarah Mcadams. PROCEDURE FOLLOWS: The patient was in the supine position. A Akers catheter was inserted per ure thra after administration of general anesthesia via endotracheal tube. The patient was rotated to the prone position upon the operating room table. All appropriate pressur e points were padded. The left flank was prepped and draped in a sterile fashion. DESCRIPTION OF PROCEDURE: The patient had a left nephroureteral stent. Under fluoroscopic control. This stent was noted to be caudad that is inferior, to the renal staghorn calculus. The staghorn calculus was identified with multiple branches involving the upper, mid and lower calice s. The projected site for nephrostomy tube access was determined in a mid to lower pole j luis, just ceph alad to the course of the previous nephrostomy tube. The nephrostomy tube obscured the access to the stone and to its visibility on the oblique view. A 0.035 inch guidewire was inserted through the indwelling nephroureteral stent down to the level of the bladder. The nephrostomy tube was removed. The appropriate j luis was identified using a triangulation technique. The j luis with its stone was t argeted from a posterolateral approach, 25 degrees off the vertical midline. An 18-gauge needle was inserted by direct targeted access onto the stone. The stone was able to be palpated with the access needle. The guidewire was able to be introduced into the j luis. Further manipulation using a Glidewire, as well as a Berenstein angle tipped catheter, allowed the gu idewire to be advanced into the upper ureter and subsequently down to the level of the bladder. The Berenstein catheter was advanced over the guidewire into the bladder. The guidewire was switched out to an Amplatz guidewire. The nephrostomy tract was dilated. First, with flexible fascial dilators to a size 10 Grenadian. There after, a 10/12 coaxial catheter was inserted into the ureter to allow a second safety guidewire to be passed down to the level of the bladder. The nephrostomy tract was dilated with the balloon cathete r under fluoroscopic control. The Amplatz sheath was inserted over the balloon catheter. Nephroscopy was performed with a 24-Grenadian 0 degree offset lens. Nephroscopy was performed. The sto ne within the renal pelvis and lower pole was identified. I could not lower within the renal pelvis and mid pole was identified. Under direct nephroscopic control, ultrasonic lithotripsy was performed. The stone was noted to be y ellow-brown in color. The stone fragmented well and was successfully removed from the pelvis. The u reteropelvic junction was identified as well and cleared of stones. The further stone identification within the calices was performed. However, the calices could not be entered via this access and due to narrow infundibulum, as later demonstrated with the nephrostogram . The nephroscope was removed. A 24-Grenadian reentry nephrostomy catheter with a distal tail was inserte d over the working wire. Proper position of the cystostomy tube was confirmed with the nephrostogram . The Amplatz sheath was removed. The nephrostomy tube was secured to the skin. The site of the previous nephrostomy tube was noted to have early signs of a hypertrophic scar. The scar was excised by sharp dissection with electrocautery. Primary skin closed with fine nylon suture s was performed. Marcaine was infiltrated for postoperative analgesia. A sterile dressing was applied. The patient was returned to the supine position. The patient was transferred to recovery room in sat isfactory condition. The patient tolerated the procedure without complication. Carole Seth MD cc: [id number] TT: 03/28/2017 21:08:07 rio
== END 2017-03-28 14:40 | disposition home or self-care (01) | DRG 660 ==
LOC: C.SDS 08:43 → C.9E 14:59 → C.6T 18:22
PROVIDERS: ADMIT Urology; ATTEND Urology
PROC: 0T9130Z Drainage of Left Kidney with Drainage Device, Percutaneous Approach (ICD-10-PCS; 2017-03-26)
PROC: 0TC13ZZ Extirpation of Matter from Left Kidney, Percutaneous Approach (ICD-10-PCS; principal; 2017-03-26 11:52)
DX: N20.0 Calculus of kidney (principal); N39.0 Urinary tract infection, site not specified; N18.9 Chronic kidney disease, unspecified

== ENCOUNTER 2017-04-14 11:00 | Inpatient (IN) | payer OTHER ==
[2017-04-12 06:51] VITALS: BMI 27.4
[2017-04-14] MEDS ORDERED: Iohexol 240 200 ML IJ ONE (12:48)
[2017-04-14] MEDS ORDERED: ceFAZolin IV 2 gm in Dextrose 0 GM/0 ML BAG IVPB ONE (12:49)
[2017-04-14] MEDS ORDERED: Ciprofloxacin 400mg/200ml D5W 400 MG/200 ML BAG IVPB ONE (12:49)
[2017-04-14] MEDS ORDERED: Midazolam 2 MG/2 ML VIAL ONE (12:50)
[2017-04-14] MEDS ORDERED: Propofol 10 mg/ml Inj (20 ML) ONE ×2 (12:50→16:05)
[2017-04-14] MEDS: Bupivacaine 0.5% Inj(30mL) ONE ×2 (12:57→16:00)
[2017-04-14] MEDS ORDERED: Gentamicin 160 MG in Sodium Chloride 0.9% 100 ML IVPB ONE (13:45)
[2017-04-14] MEDS ORDERED: Gentamicin 80 mg in 0.9% NS 160 MG/200 ML BAG IVPB ONE (14:16)
[2017-04-14 14:58] LABS: BASO % 0.4 % (0.0-2.0); EOS # 0.3 K/uL (0.0-0.7); EOS % 3.2 % (0.0-4.0); HEMOGLOBIN 8.7 g/dL (11.0-16.0); LYMPH # 2.5 K/uL (1.0-4.3); LYMPH % 26.9 % (20.0-40.0); MEAN CORPUSCULAR HEMOGLOBIN 22.9 pg (27.0-31.0); MEAN CORPUSCULAR HGB CONC 30.6 g/dL (33.0-37.0); MEAN PLATELET VOLUME 12.1 fL (7.2-11.7); MONO # 0.6 K/uL (0.0-0.8); MONO % 6.2 % (0.0-10.0); NEUT # 5.9 K/uL (1.8-7.0); NEUT % 63.3 % (50.0-75.0); RBC 3.81 Mil/uL (3.80-5.20); RED CELL DISTRIBUTION WIDTH 14.3 % (11.5-14.5); WHITE BLOOD COUNT 9.3 K/uL (4.8-10.8)
[2017-04-14] MEDS: HYDROmorphone 0.5 mg/0.5 ml ISec IVP PRN ×3 (16:37→17:00)
[2017-04-14] MEDS ORDERED: HYDROmorphone 0.5 mg/0.5 ml ISec IVP PRN (17:06)
--- NOTE | 2017-04-14 17:32 | PCM.SURG1 ---
Surgeon's Initial Post Op Note - Surgeon's Notes Surgeon: Ke Seth [employer] Photographer: none Type of Anesthesia: General Endo Pre-Operative Diagnosis: L renal calculi. L upper ureteral calculus Operative Findings: same Post-Operative Diagnosis: same Operation Performed: L percutaneous nephroscopy. L antegrade ureteroscopy, laser lithotripsy, stone basketing. L nephrostogram Specimen/Specimens Removed: stones, urine Estimated Blood Loss: EBL {In ML}: 50 Blood Products Given: N/A Post-Op Condition: Good Date of Surgery/Procedure: 04/14/17 Time of Surgery/Procedure: 04:45
[2017-04-14] MEDS: Morphine 4 MG/ML VIAL IV PRN ×2 (18:52→23:54)
[2017-04-14] MEDS: Potassium Ch 20mEq in D5-1/2NS 1,000 ML IV SCH (19:00)
[2017-04-14] MEDS: Oxycodone/Acetaminophen 5/325 mg Tab PO PRN (21:31)
[2017-04-15] MEDS: Potassium Ch 20mEq in D5-1/2NS 1,000 ML IV SCH ×4 (01:30→17:26)
[2017-04-15] MEDS: Oxycodone/Acetaminophen 5/325 mg Tab PO PRN ×4 (03:14→21:16)
[2017-04-15] MEDS: Morphine 4 MG/ML VIAL IV PRN ×2 (06:19→17:34)
[2017-04-15 06:58] LABS: MEAN CELL VOLUME 74.3 fL (81.0-99.0); MEAN CORPUSCULAR HEMOGLOBIN 22.7 pg (27.0-31.0); MEAN CORPUSCULAR HGB CONC 30.5 g/dL (33.0-37.0); RBC 3.07 Mil/uL (3.80-5.20); RED CELL DISTRIBUTION WIDTH 14.3 % (11.5-14.5); WHITE BLOOD COUNT 13.5 K/uL (4.8-10.8)
[2017-04-15 07:10] LABS: GFR AFRICAN-AMERICAN > 60; GFR NON-AFRICAN AMERICAN > 60
[2017-04-15 07:11] LABS: BLOOD UREA NITROGEN 10 mg/dL (7-17); CALCIUM 7.5 mg/dl (8.6-10.4)
--- NOTE | 2017-04-15 07:26 | PCM.URO ---
Urology Progress Note - Objective Lab Results Last 24 Hours: Laboratory Results - last 24 hr 04/14/17 04/14/17 04/14/17 14:52 14:52 15:00 WBC 9.3 RBC 3.81 Hgb 8.7 L Hct 28.5 L MCV 75.0 L MCH 22.9 L MCHC 30.6 L RDW 14.3 Plt Count 168 MPV 12.1 H Neut % (Auto) 63.3 Lymph % (Auto) 26.9 [place] % (Auto) 6.2 Eos % (Auto) 3.2 Baso % (Auto) 0.4 Neut # 5.9 Lymph # 2.5 [place] # 0.6 Eos # 0.3 Baso # 0.0 Sodium Potassium Chloride Carbon Dioxide Anion Gap BUN Creatinine Est GFR ( Amer) Est GFR (Non-Af Amer) Random Glucose Calcium NT-Pro-B Natriuret Pep 33.8 Blood Type O POSITIVE Antibody Screen Negative 04/15/17 04/15/17 06:37 06:37 WBC 13.5 H RBC 3.07 L Hgb 7.0 L Hct 22.8 L MCV 74.3 L MCH 22.7 L MCHC 30.5 L RDW 14.3 Plt Count 168 MPV 12.0 H Neut % (Auto) Lymph % (Auto) [place] % (Auto) Eos % (Auto) Baso % (Auto) Neut # Lymph # [place] # Eos # Baso # Sodium 132 Potassium 3.7 Chloride 98 Carbon Dioxide 25 Anion Gap 13 BUN 10 Creatinine 0.7 Est GFR ( Amer) > 60 Est GFR (Non-Af Amer) > 60 Random Glucose 117 H Calcium 7.5 L NT-Pro-B Natriuret Pep Blood Type Antibody Screen Intake & Output: Intake & Output 04/14/17 04/15/17 04/15/17 18:59 06:59 18:59 Intake Total 1800 1880 Output Total 345 780 Balance 1455 1100 Intake: IV 1800 Intake, IV Amount 1400 Right Hand 1400 Oral 480 Output: Drainage 100 130 Left Lower 130 Urine 245 650 Urethral (Akers) 650 Other: Voiding Method Indwelling Catheter # Bowel Movements 0 Vital Signs: Vital Signs - 24 hr 04/14/17 04/14/17 04/14/17 11:17 16:30 16:45 Temperature 98.3 F 97.4 F L Pulse Rate 85 78 77 Respiratory 18 19 10 L Rate Blood Pressure 124/77 145/80 154/85 H O2 Sat by Pulse 100 100 100 Oximetry 04/14/17 04/14/17 04/14/17 17:00 17:15 17:30 Temperature Pulse Rate 68 66 66 Respiratory 18 19 21 Rate Blood Pressure 137/67 141/79 134/79 O2 Sat by Pulse 100 100 100 Oximetry 04/14/17 04/14/17 04/14/17 17:45 18:00 18:40 Temperature 97.6 F 98.5 F Pulse Rate 70 75 79 Respiratory 18 25 H 18 Rate Blood Pressure 132/77 144/88 139/58 L O2 Sat by Pulse 100 98 95 Oximetry 04/14/17 04/15/17 23:20 06:15 Temperature 99.7 F H 99.1 F Pulse Rate 100 H 97 H Respiratory 20 Rate Blood Pressure 120/82 108/66 O2 Sat by Pulse 97 Oximetry - Date & Time of Note Date: 04/15/17 Time: 07:25
[2017-04-15 08:09] LABS: ALT/SGPT 18 U/L (9-52); AST/SGOT 16 U/L (14-36); BILIRUBIN,DIRECT 0.6 mg/dL (0.0-0.4)
--- NOTE | 2017-04-15 08:55 | RAD ---
HISTORY: Urinary Calculus COMPARISON: No prior. FINDINGS: BOWEL: Normal. No obstruction. No free air. BONES: Normal. OTHER FINDINGS: A left-sided nephrostomy is identified contiguous with the nephro ureteral catheter which extends into the plane of the left ureter distally. Numerous calculi are seen within the upper mid lower pole presumed the presumed left kidney including the left renal pelvis region. Approximate 10 mm calculus abuts the nephroureteral catheter inferolaterally at the region of the pelvis. No suspicious radiation lithiasis is appreciated the right flank and small calcifications in the inferior pelvis soft tissues likely reflect 2 tiny phleboliths. IMPRESSION: No act 1. Status post left nephrostomy with nephro ureteral catheter as per above. Numerous intra caliceal calculi are identified with a solitary 10 mm calculus abutting the nephro ureteral catheter at the region of the left renal pelvis. 2. Two small phlebolith start like calcifications are seen at the inferior right pelvis soft tissues.
--- NOTE | 2017-04-15 09:29 | RAD ---
PROCEDURE: HISTORY: KIDNEY STONE LEFT nephrostomy tube exchange with laser lithotripsy COMPARISON: Prior intraoperative fluoroscopy 03/26/2017 states left kidney stone TECHNIQUE: Total fluoroscopic time utilized during the procedure: 08374.2 seconds. Total dose 32.18 mGy cm squared FINDINGS: Submitted images from the current procedure: 16 Please refer to the physician's notes performing the procedure. IMPRESSION: Less than 1 hour fluoroscopic time utilized during performance of the procedure
[2017-04-15] MEDS ORDERED: cefTRIAXone IV 1 gm in Dextros 50 ML IVPB SCH (10:00)
[2017-04-15] MEDS ORDERED: Iohexol 240 (50 ml) PO ONE (14:00)
--- NOTE | 2017-04-15 16:09 | CP.PCM.CON ---
History of Present Illness - History of Present Illness History of Present Illness: General Surgery consult not for Dr. Babin Surgery consulted for abdominal pain and nausea s/p nephroli 37yo female with PMH of CKD, nephrolithiasis x3, and anemia with PSH of nephrostomy tube placement 03/28/17, postoperative day 1 s/p left percutaneous nephrolithotomy with lithotripsy and nephrostomy tube exchange complaining of abdominal pain and nausea that began yesterday after her surgery. She states that the pain is sharp and radiates throughout her entire abdomen. She says that there has been no change in the intensity of the pain () since yesterday and that the Percocet she has been taking just makes her vomit. She states that she has 4 episodes of non-bloody, non-bilious emesis since yesterday. Patient also has severe left sided flank pain around the area of the nephrostomy tube. She says that she hasn't had a bowel movement or passed gas since the surgery and has noticed a little blood in her urine. Denies fevers, chills, or chest pain PMHx: Nephrolithiasis x3, Anemia, CKD PSHx: 3 C-sections, Tummy tuck, Insertion Nephrostomy Tube on left (03/28/17) Allergies: Denies Social Hx: Denies tobacco, alcohol, or illicit drug use Review of Systems - Review of Systems All systems: reviewed and no additional remarkable complaints except (as per HPI ) - Constitutional Constitutional: Headache. absent: Chills, Fever - Cardiovascular Cardiovascular: absent: Chest Pain, Chest Pain at Rest, Dyspnea - Respiratory Respiratory: Dyspnea. absent: Cough, Dyspnea on Exertion - Gastrointestinal Gastrointestinal: As Per HPI, Abdominal Pain, Nausea, Vomiting. absent: Diarrhea, Hematochezia, Melena - Genitourinary Genitourinary: Hematuria. absent: Dysuria, Urinary Incontinence - Musculoskeletal Musculoskeletal: Back Pain. absent: Arthralgias - Integumentary Additional comments: No bruising of the flank or periumbilically - Psychiatric Psychiatric: Anxiety - Hematologic/Lymphatic Hematologic: absent: Easy Bleeding, Easy Bruising Past Patient History - Infectious Disease Hx of Infectious Diseases: None - Past Medical History & Family History Past Medical History?: Yes Past Family History: Reviewed and not pertinent - Past Social History Smoking Status: Never Smoked Alcohol: None Drugs: Denies - CARDIAC Hx Cardiac Disorders: No - PULMONARY Hx Respiratory Disorders: No - NEUROLOGICAL Hx Neurological Disorder: No - HEENT Hx HEENT Problems: No - RENAL Hx Chronic Kidney Disease: Yes Hx Kidney Stones: Yes Other/Comment: uti, sepsis - ENDOCRINE/METABOLIC Hx Endocrine Disorders: No - HEMATOLOGICAL/ONCOLOGICAL Hx Blood Disorders: Yes Hx Anemia: Yes - INTEGUMENTARY Hx Dermatological Problems: No - MUSCULOSKELETAL/RHEUMATOLOGICAL Hx Musculoskeletal Disorders: No Hx Falls: No - GASTROINTESTINAL Hx Gastrointestinal Disorders: Yes Other/Comment: constipation - GENITOURINARY/GYNECOLOGICAL Hx Genitourinary Disorders: Yes Hx Hematuria: Yes Other/Comment: KIDNEY STONES - PSYCHIATRIC Hx Psychophysiologic Disorder: No Hx Substance Use: No - SURGICAL HISTORY Hx Surgeries: Yes Hx Section: Yes (X3) Other/Comment: INSERTION NEPHROSTOMY TUBE LEFT 03/28/17 - ANESTHESIA Hx Anesthesia: Yes Hx Anesthesia Reactions: No Hx Malignant Hyperthermia: No Has any member of the family had a problem w/ anesthesia?: No Meds Allergies/Adverse Reactions: Allergies Allergy/AdvReac Type Severity Reaction Status Date / Time No Known Allergies Allergy Verified 03/26/17 09:05 - Medications Medications: Current Medications Docusate Sodium (Colace) 100 mg PO TID [facility] Last Admin: 04/15/17 13:31 Dose: 100 mg Potassium Chloride/Dextrose/Sod Cl (Potassium Chl 20 Meq In D5-1/2ns) 1,000 mls @ 125 mls/hr IV .Q8H [facility] Last Admin: 04/15/17 12:30 Dose: 125 mls/hr Ceftriaxone Sodium (Rocephin Iv 1 Gm Duplex) 50 mls @ 100 mls/hr IVPB DAILY [facility] Last Admin: 04/15/17 09:23 Dose: 100 mls/hr Morphine Sulfate (Morphine) 4 mg IV Q4 PRN PRN Reason: severe pain Last Admin: 04/15/17 06:19 Dose: 4 mg Ondansetron HCl (Zofran Inj) 4 mg IVP Q6 PRN PRN Reason: Nausea/Vomiting Last Admin: 04/15/17 13:30 Dose: 4 mg Oxycodone/Acetaminophen (Percocet 5/325 Mg Tab) 1 tab PO Q4H PRN PRN Reason: Pain, moderate (4-7) Stop: 04/17/17 17:17 Last Admin: 04/15/17 14:17 Dose: 1 tab Physical Exam - Constitutional Appears: Well, In Acute Distress - Head Exam Head Exam: ATRAUMATIC, NORMAL INSPECTION, NORMOCEPHALIC - Eye Exam Eye Exam: EOMI, Normal appearance Pupil Exam: NORMAL ACCOMODATION, PERRL - ENT Exam ENT Exam: Mucous Membranes Moist, Normal Exam - Neck Exam Neck exam: Positive for: Normal Inspection - Respiratory Exam Respiratory Exam: Clear to Auscultation Bilateral, NORMAL BREATHING PATTERN - Cardiovascular Exam Cardiovascular Exam: RRR, +S1, +S2 - GI/Abdominal Exam GI & Abdominal Exam: Distended (Slight), Guarding (voluntary in response to pain ), Normal Bowel Sounds, Rebound, Soft, Tenderness. absent: Rigid - Extremities Exam Extremities exam: Positive for: normal inspection. Negative for: calf tenderness, joint swelling, pedal edema - Back Exam Back exam: CVA tenderness (L). absent: CVA tenderness (R) Additional comments: Left nephrostomy tube present covered in intact dressing with mild sero- sanguinous saturation, no flank or umbilical bruising - Neurological Exam Neurological exam: Alert, Oriented x3 - Psychiatric Exam Psychiatric exam: Anxious, Normal Affect - Skin Skin Exam: Dry, Normal Color, Warm Results - Vital Signs Recent Vital Signs: Last Vital Signs Temp 99 F 04/15/17 13:45 Pulse 90 04/15/17 14:16 Resp 20 04/15/17 13:45 BP 116/70 04/15/17 14:16 Pulse Ox 98 04/15/17 13:45 - Labs Result Diagrams: 04/15/17 06:37 04/15/17 06:37 Labs: Laboratory Results - last 24 hr 04/14/17 04/15/17 04/15/17 15:00 06:37 06:37 WBC 13.5 H RBC 3.07 L Hgb 7.0 L Hct 22.8 L MCV 74.3 L MCH 22.7 L MCHC 30.5 L RDW 14.3 Plt Count 168 MPV 12.0 H Sodium 132 Potassium 3.7 Chloride 98 Carbon Dioxide 25 Anion Gap 13 BUN 10 Creatinine 0.7 Est GFR ( Amer) > 60 Est GFR (Non-Af Amer) > 60 Random Glucose 117 H Calcium 7.5 L Total Bilirubin 0.7 Direct Bilirubin 0.6 H AST 16 ALT 18 Alkaline Phosphatase 48 Total Protein 5.9 L Albumin 3.0 L Globulin 2.9 Albumin/Globulin Ratio 1.0 Urine HCG, Qual Blood Type O POSITIVE Antibody Screen Negative 04/15/17 13:33 WBC RBC Hgb Hct MCV MCH MCHC RDW Plt Count MPV Sodium Potassium Chloride Carbon Dioxide Anion Gap BUN Creatinine Est GFR ( Amer) Est GFR (Non-Af Amer) Random Glucose Calcium Total Bilirubin Direct Bilirubin AST ALT Alkaline Phosphatase Total Protein Albumin Globulin Albumin/Globulin Ratio Urine HCG, Qual Negative Blood Type Antibody Screen Assessment & Plan - Assessment and Plan (Free Text) Assessment: 37yo female POD 1 s/p left percutaneous nephrolithotomy and exchange of nephrostomy tube complaining of abdominal pain and nausea: Afebrile, normocardic, normotensive Hgb 7.0 down from 8.[address] abdomen and pelvis with PO contrast suspicious for sub-capsular hemorrhage of left kidney well contained Plan F/U CT abdomen pelvis with PO contrast official report Serial abdominal exams Trend H/H analgesia Continue management per primary team Discussed with Dr. Talya Beavers, PGY2
--- NOTE | 2017-04-15 17:11 | CT ---
PROCEDURE: CT Abdomen and Pelvis without intravenous contrast HISTORY: r/o retroperitoneal hematoma s/p nephrostomy COMPARISON: None. TECHNIQUE: CT examination of the abdomen pelvis was performed following oral contrast only. Intravenous contrast was not administered as per referring physician request.. Contrast Dose: 0 cc Radiation dose: Total exam DLP = 921 mGy-cm. This CT exam was performed using one or more of the following dose reduction techniques: Automated exposure control, adjustment of the mA and/or kV according to patient size, and/or use of iterative reconstruction technique. FINDINGS: LOWER THORAX: A tiny calcified granuloma is appreciated the right lower lobe base with linear atelectasis or fibrosis seen at both bases. Trace left pleural is identified with none at the right. No pericardial effusion. Cardiomegaly is noted. Incidental note is made of marked atrophy of the inferior left shoulder musculature. . LIVER: Unremarkable. No gross lesion or ductal dilatation. GALLBLADDER AND BILE DUCTS: Sludge is identified within the gallbladder in a mildly distended gallbladder with the gallbladder otherwise unremarkable appearing. No definite extrahepatic biliary dilatation is evident. Lack of intravenous contrast limits the evaluation. . PANCREAS: Unremarkable. No gross lesion or ductal dilatation. SPLEEN: Unremarkable. ADRENALS: Unremarkable. No mass. KIDNEYS AND URETERS: The left-sided nephrostomy is identified contiguous with the nephro ureteral catheter, terminating in the distal left ureter. Multifocal intrarenal calculi identified within dilated at dilated pelvocaliceal system including immediately inferior to the proximal segment of the nephro ureteral catheter at the left renal pelvis. Calculi vary in size from a few mm up to 1.5 cm. Dilated pelvocaliceal system is identified with trace gas identified in the superior left perinephric space postprocedure. There is a crescentic, hyperdense collection in the antral lateral left perinephric space measuring 7.0 x 2.3 x 12.4 cm (transverse by anteroposterior by superoinferior dimensions). This compatible with a perinephric hematoma. Limited left perinephric reaction sore limited left para renal reaction is appreciated. Trace fluid is seen in the right para renal/pericolic gutter space. VASCULATURE: Unremarkable. No aortic aneurysm. BOWEL: Unremarkable. No obstruction. No gross mural thickening. APPENDIX: Not clearly identified. PERITONEUM: Limited fluid is identified in the left greater than right pericolic gutters at the mid to inferior abdomen. Limited pelvic fluid is encountered. LYMPH NODES: Unremarkable. No enlarged lymph nodes. BLADDER: Trace gas identified in the nondependent urinary bladder REPRODUCTIVE: Unremarkable. BONES: No acute fracture. OTHER FINDINGS: None. IMPRESSION: A moderate large left perinephric hematoma is appreciate status post left nephrostomy and nephro ureteral catheter placement. The catheter is identified terminates the distal left ureter. Limited mass effect is identified exerted on the left kidney. Findings were discussed with Dr. Santamaria, 04/15/2017, 16:40.
--- NOTE | 2017-04-15 17:33 | CP.PCM.CON ---
History of Present Illness - History of Present Illness History of Present Illness: 37yo female postoperative day 1 s/p left percutaneous nephrolithotomy with lithotripsy and nephrostomy tube exchange complaining of abdominal pain and nausea that began yesterday after her surgery . She states that she has 4 episodes of non-bloody, non-bilious emesis since yesterday. Patient also has severe left sided flank pain around the area of the nephrostomy tube. Denies fevers, chills, or chest pain PMHx: Nephrolithiasis x3, Anemia, CKD PSHx: 3 C-sections, Tummy tuck, Insertion Nephrostomy Tube on left (03/28/17) Allergies: Denies Social Hx: Denies tobacco, alcohol, or illicit drug use Review of Systems - Constitutional Constitutional: As Per HPI, Anorexia. absent: Fever - EENT Eyes: absent: As Per HPI, Blind Spots, Blurred Vision, Change in Vision, Decreased Night Vision, Diplopia, Discharge, Dry Eye, Exophthalmos, Floaters, Irritation, Itchy Eyes, Loss of Peripheral Vision, Pain, Photophobia, Requires Corrective Lenses, Sees Flashes, Spots in Vision, Tunnel Vision, Other Visual Disturbances, Loss of Vision, Other Ears: absent: As Per HPI, Decreased Hearing, Ear Discharge, Ear Pain, Tinnitus, Abnormal Hearing, Disequilibrium, Dizziness, Other Nose/Mouth/Throat: absent: As Per HPI, Epistaxis, Nasal Congestion, Nasal Discharge, Nasal Obstruction, Nasal Trauma, Nose Pain, Post Nasal Drip, Sinus Pain, Sinus Pressure, Bleeding Gums, Change in Voice, Dental Pain, Dry Mouth, Dysphagia, Halitosis, Hoarsness, Lip Swelling, Mouth Lesions, Mouth Pain, Odynophagia, Sore Throat, Throat Swelling, Tongue Swelling, Facial Pain, Neck Pain, Neck Mass, Other - Breasts Breasts: absent: As Per HPI, Change in Shape, Mass, Pain, Nipple Discharge, Nipple Inversion, Skin Changes, Swelling, Other - Cardiovascular Cardiovascular: absent: As Per HPI, Acrocyanosis, Chest Pain, Chest Pain at Rest , Chest Pain with Activity, Claudication, Diaphoresis, Dyspnea, Dyspnea on Exertion, Edema, Irregular Heart Rhythm, Pain Radiating to Arm/Neck/Jaw, Leg Edema, Leg Ulcers, Lightheadedness, Orthopnea, Palpitations, Paroxysmal Nocturnal Dyspnea, Pedal Edema, Radiating Pain, Rapid Heart Rate, Slow Heart Rate, Syncope, Other - Respiratory Respiratory: absent: As Per HPI, Cough, Dyspnea, Hemoptysis, Dyspnea on Exertion , Wheezing, Snoring, Stridor, Pain on Inspiration, Chest Congestion, Excessive Mucous Production, Change in Mucous Color, Pain with Coughing, Other - Gastrointestinal Gastrointestinal: As Per HPI, Abdominal Pain - Genitourinary Genitourinary: As Per HPI - Reproductive: Female Reproductive:Female: absent: As Per HPI, Amenorrhea, Amenorrhea/ Control, Currently Menstual, Cycle <21 Days, Cycle >35 Days, Cycle Variable, Menses 1-7 Days, Menses >/= 8 Days, Menses Variable, Cycle > 4 Weeks Between, No Menses for 6 Months, Heavy Menses, Light Menses, Normal Menses, Spotting Between Cycles , S/P Hysterectomy, Menopausal, Post Menopausal, Premenarche, Abnormal Vaginal Bleeding, Dysmenorrhea, Dyspareunia, Genital Lesions, Genital Pruritis, Pelvic Pain, Prolapse Symptoms, Sexual Dysfunction, Vaginal Discharge, Vaginal Dryness , Vaginal Odor, Vaginal Pruritis, Other - Menstruation Menstruation: absent: As Per HPI, Amenorrhea, Amenorrhea/ Control, Currently Menstual, Cycle <21 Days, Cycle >35 Days, Cycle Variable, Menses 1-7 Days, Menses >/= 8 Days, Menses Variable, Cycle > 4 Weeks Between, No Menses for 6 Months, Heavy Menses, Light Menses, Normal Menses, Spotting Between Cycles , S/P Hysterectomy, Menopausal, Post Menopausal, Premenarche, Abnormal Vaginal Bleeding, Dysmenorrhea, Other - Musculoskeletal Musculoskeletal: absent: As Per HPI, Abnormal Gait, Arthralgias, Atrophy, Back Pain, Deformity, Joint Swelling, Limited Range of Motion, Loss of Height, Muscle Cramps, Muscle Weakness, Myalgias, Neck Pain, Numbness, Radiating Pain into Limb, Stiffness, Tingling, Other - Integumentary Integumentary: absent: As Per HPI, Acne, Alopecia, Bleeding Lesions, Change in Hair, Change in Nails, Change in Pigmentation, Changing Lesions, Dry Skin, Erythema, Furuncle, Hirsutism, Lesions, New Lesions, Non-Healing Lesions, Photosensitivity, Pruritus, Rash, Skin Pain, Skin Ulcer, Sores, Striae, Swelling , Unusual Bruising, Wounds, Jaundice, Other - Neurological Neurological: absent: As Per HPI, Abnormal Gait, Abnormal Hearing, Abnormal Movements, Abnormal Speech, Behavioral Changes, Burning Sensations, Confusion, Convulsions, Disequilibrium, Dizziness, Numbness, Focal Weakness, Frequent Falls , Headaches, Lack of Coordination, Loss of Vision, Memory Loss, Paresthesias, Radicular Pain, Restless Legs, Sensory Deficit, Syncope, Tingling, Tremor, Vertigo, Weakness, Other Visual Disturbances, Other - Psychiatric Psychiatric: absent: As Per HPI, Abnormal Sleep Pattern, Anhedonia, Anxiety, Auditory Hallucinations, Behavioral Changes, Change in Appetite, Change in Libido, Confusion, Depression, Difficulty Concentrating, Hallucinations, Homicidal Ideation, Hopelessness, Irritability, Memory Loss, Mood Swings, Panic Attacks, Paranoia, Suicidal Ideation, Visual Hallucinations, Tactile Hallucinations, Other - Endocrine Endocrine: absent: As Per HPI, Change in Body Appearance, Change in Libido, Cold Intolorance, Deepening of Voice, Excessive Sweating, Fatigue, Flushing, Heat Intolorance, Increase in Ring/Shoe/Hat Size, Palpitations, Polydipsia, Polyphagia, Polyuria, Other - Hematologic/Lymphatic Hematologic: absent: As Per HPI, Easy Bleeding, Easy Bruising, Lymphadenopathy, Other Past Patient History - Infectious Disease Hx of Infectious Diseases: None - Past Medical History & Family History Past Medical History?: Yes Past Family History: Reviewed and not pertinent - Past Social History Smoking Status: Never Smoked Alcohol: None Drugs: Denies - CARDIAC Hx Cardiac Disorders: No - PULMONARY Hx Respiratory Disorders: No - NEUROLOGICAL Hx Neurological Disorder: No - HEENT Hx HEENT Problems: No - RENAL Hx Chronic Kidney Disease: Yes Hx Kidney Stones: Yes Other/Comment: uti, sepsis - ENDOCRINE/METABOLIC Hx Endocrine Disorders: No - HEMATOLOGICAL/ONCOLOGICAL Hx Blood Disorders: Yes Hx Anemia: Yes - INTEGUMENTARY Hx Dermatological Problems: No - MUSCULOSKELETAL/RHEUMATOLOGICAL Hx Musculoskeletal Disorders: No Hx Falls: No - GASTROINTESTINAL Hx Gastrointestinal Disorders: Yes Other/Comment: constipation - GENITOURINARY/GYNECOLOGICAL Hx Genitourinary Disorders: Yes Hx Hematuria: Yes Other/Comment: KIDNEY STONES - PSYCHIATRIC Hx Psychophysiologic Disorder: No Hx Substance Use: No - SURGICAL HISTORY Hx Surgeries: Yes Hx Section: Yes (X3) Other/Comment: INSERTION NEPHROSTOMY TUBE LEFT 06/25/17 - ANESTHESIA Hx Anesthesia: Yes Hx Anesthesia Reactions: No Hx Malignant Hyperthermia: No Has any member of the family had a problem w/ anesthesia?: No Meds Allergies/Adverse Reactions: Allergies Allergy/AdvReac Type Severity Reaction Status Date / Time No Known Allergies Allergy Verified 03/26/17 09:05 - Medications Medications: Current Medications Docusate Sodium (Colace) 100 mg PO TID [facility] Last Admin: 04/15/17 13:31 Dose: 100 mg Potassium Chloride/Dextrose/Sod Cl (Potassium Chl 20 Meq In D5-1/2ns) 1,000 mls @ 125 mls/hr IV .Q8H [facility] Last Admin: 04/15/17 17:26 Dose: Not Given Ceftriaxone Sodium (Rocephin Iv 1 Gm Duplex) 50 mls @ 100 mls/hr IVPB DAILY [facility] Last Admin: 04/15/17 09:23 Dose: 100 mls/hr Morphine Sulfate (Morphine) 4 mg IV Q4 PRN PRN Reason: severe pain Last Admin: 04/15/17 06:19 Dose: 4 mg Ondansetron HCl (Zofran Inj) 4 mg IVP Q6 PRN PRN Reason: Nausea/Vomiting Last Admin: 04/15/17 13:30 Dose: 4 mg Oxycodone/Acetaminophen (Percocet 5/325 Mg Tab) 1 tab PO Q4H PRN PRN Reason: Pain, moderate (4-7) Stop: 04/17/17 17:17 Last Admin: 04/15/17 14:17 Dose: 1 tab Physical Exam - Constitutional Appears: Non-toxic, No Acute Distress, Chronically Ill - Head Exam Head Exam: ATRAUMATIC, NORMAL INSPECTION, NORMOCEPHALIC - Eye Exam Eye Exam: PERRL. absent: Scleral icterus - ENT Exam ENT Exam: Mucous Membranes Dry, Normal External Ear Exam - Neck Exam Neck exam: Negative for: Lymphadenopathy, Thyromegaly - Respiratory Exam Respiratory Exam: Decreased Breath Sounds, Clear to Auscultation Bilateral - Cardiovascular Exam Cardiovascular Exam: REGULAR RHYTHM, +S1, +S2 - GI/Abdominal Exam GI & Abdominal Exam: Diminished Bowel Sounds, Distended, Firm, Guarding, Soft, Tenderness. absent: Hernia, Organomegaly, Pulsatile Mass, Rebound, Rigid - Rectal Exam Rectal Exam: Deferred - Exam Exam: NORMAL INSPECTION Additional comments: + nephrostomy tube Left - Extremities Exam Extremities exam: Positive for: pedal pulses present. Negative for: calf tenderness, pedal edema, tenderness - Back Exam Back exam: absent: CVA tenderness (L), CVA tenderness (R), paraspinal tenderness - Neurological Exam Neurological exam: Alert, CN II-XII Intact, Oriented x3, Reflexes Normal - Psychiatric Exam Psychiatric exam: Normal Mood - Skin Skin Exam: Dry, Intact Results - Vital Signs Recent Vital Signs: Last Vital Signs Temp 99.1 F 04/15/17 16:23 Pulse 94 H 04/15/17 16:23 Resp 18 04/15/17 16:23 BP 112/65 04/15/17 16:23 Pulse Ox 99 04/15/17 16:23 - Labs Result Diagrams: 04/15/17 06:37 04/15/17 06:37 Labs: Laboratory Results - last 24 hr 04/15/17 04/15/17 04/15/17 06:37 06:37 13:33 WBC 13.5 H RBC 3.07 L Hgb 7.0 L Hct 22.8 L MCV 74.3 L MCH 22.7 L MCHC 30.5 L RDW 14.3 Plt Count 168 MPV 12.0 H Sodium 132 Potassium 3.7 Chloride 98 Carbon Dioxide 25 Anion Gap 13 BUN 10 Creatinine 0.7 Est GFR ( Amer) > 60 Est GFR (Non-Af Amer) > 60 Random Glucose 117 H Calcium 7.5 L Total Bilirubin 0.7 Direct Bilirubin 0.6 H AST 16 ALT 18 Alkaline Phosphatase 48 Total Protein 5.9 L Albumin 3.0 L Globulin 2.9 Albumin/Globulin Ratio 1.0 Urine HCG, Qual Negative Assessment & Plan (1) Fever Status: Acute (2) Nephrostomy status Status: Acute (3) UTI (urinary tract infection) Status: Acute - Assessment and Plan (Free Text) Assessment: leukocytosis possibly reactive r/o infection/ UTI / Pyelo s/p nephrostomy tube excange s/p nephrolithotomy cont iv antibotics check cultures
--- NOTE | 2017-04-15 22:46 | CP.PCM.CON ---
Past Patient History - Infectious Disease Hx of Infectious Diseases: None - Past Medical History & Family History Past Medical History?: Yes Past Family History: Reviewed and not pertinent - Past Social History Smoking Status: Never Smoked Alcohol: None Drugs: Denies - CARDIAC Hx Cardiac Disorders: No - PULMONARY Hx Respiratory Disorders: No - NEUROLOGICAL Hx Neurological Disorder: No - HEENT Hx HEENT Problems: No - RENAL Hx Chronic Kidney Disease: Yes Hx Kidney Stones: Yes Other/Comment: uti, sepsis - ENDOCRINE/METABOLIC Hx Endocrine Disorders: No - HEMATOLOGICAL/ONCOLOGICAL Hx Blood Disorders: Yes Hx Anemia: Yes - INTEGUMENTARY Hx Dermatological Problems: No - MUSCULOSKELETAL/RHEUMATOLOGICAL Hx Musculoskeletal Disorders: No Hx Falls: No - GASTROINTESTINAL Hx Gastrointestinal Disorders: Yes Other/Comment: constipation - GENITOURINARY/GYNECOLOGICAL Hx Genitourinary Disorders: Yes Hx Hematuria: Yes Other/Comment: KIDNEY STONES - PSYCHIATRIC Hx Psychophysiologic Disorder: No Hx Substance Use: No - SURGICAL HISTORY Hx Surgeries: Yes Hx Section: Yes (X3) Other/Comment: INSERTION NEPHROSTOMY TUBE LEFT 03/28/17 - ANESTHESIA Hx Anesthesia: Yes Hx Anesthesia Reactions: No Hx Malignant Hyperthermia: No Has any member of the family had a problem w/ anesthesia?: No Meds Allergies/Adverse Reactions: Allergies Allergy/AdvReac Type Severity Reaction Status Date / Time No Known Allergies Allergy Verified 03/26/17 09:05 - Medications Medications: Current Medications Docusate Sodium (Colace) 100 mg PO TID [facility] Last Admin: 04/15/17 17:34 Dose: 100 mg Potassium Chloride/Dextrose/Sod Cl (Potassium Chl 20 Meq In D5-1/2ns) 1,000 mls @ 125 mls/hr IV .Q8H [facility] Last Admin: 04/15/17 17:26 Dose: Not Given Ceftriaxone Sodium 1 gm/ (Sodium Chloride) 100 mls @ 100 mls/hr IVPB Q12H [facility] Last Admin: 04/15/17 21:15 Dose: 100 mls/hr Morphine Sulfate (Morphine) 4 mg IV Q4 PRN PRN Reason: severe pain Last Admin: 04/15/17 17:34 Dose: 4 mg Ondansetron HCl (Zofran Inj) 4 mg IVP Q6 PRN PRN Reason: Nausea/Vomiting Last Admin: 04/15/17 17:33 Dose: 4 mg Oxycodone/Acetaminophen (Percocet 5/325 Mg Tab) 1 tab PO Q4H PRN PRN Reason: Pain, moderate (4-7) Stop: 04/17/17 17:17 Last Admin: 04/15/17 21:16 Dose: 1 tab Results - Vital Signs Recent Vital Signs: Last Vital Signs Temp 100.7 F H 04/15/17 22:02 Pulse 74 04/15/17 21:30 Resp 18 04/15/17 21:30 BP 116/74 04/15/17 21:30 Pulse Ox 99 04/15/17 16:23 - Labs Result Diagrams: 04/15/17 06:37 04/15/17 06:37 Labs: Laboratory Results - last 24 hr 04/15/17 04/15/17 04/15/17 06:37 06:37 13:33 WBC 13.5 H RBC 3.07 L Hgb 7.0 L Hct 22.8 L MCV 74.3 L MCH 22.7 L MCHC 30.5 L RDW 14.3 Plt Count 168 MPV 12.0 H Sodium 132 Potassium 3.7 Chloride 98 Carbon Dioxide 25 Anion Gap 13 BUN 10 Creatinine 0.7 Est GFR ( Amer) > 60 Est GFR (Non-Af Amer) > 60 Random Glucose 117 H Calcium 7.5 L Total Bilirubin 0.7 Direct Bilirubin 0.6 H AST 16 ALT 18 Alkaline Phosphatase 48 Total Protein 5.9 L Albumin 3.0 L Globulin 2.9 Albumin/Globulin Ratio 1.0 Urine HCG, Qual Negative
[2017-04-16] MEDS: Potassium Ch 20mEq in D5-1/2NS 1,000 ML IV SCH ×3 (02:00→17:55)
[2017-04-16] MEDS: Morphine 4 MG/ML VIAL IV PRN (03:45)
[2017-04-16] MEDS: Oxycodone/Acetaminophen 5/325 mg Tab PO PRN ×3 (05:53→15:25)
[2017-04-16 07:31] LABS: GFR AFRICAN-AMERICAN > 60; GFR NON-AFRICAN AMERICAN > 60
[2017-04-16 07:32] LABS: BLOOD UREA NITROGEN 4 mg/dL (7-17)
[2017-04-16 07:33] LABS: BASO % 0.3 % (0.0-2.0); EOS # 0.5 K/uL (0.0-0.7); EOS % 4.1 % (0.0-4.0); HEMOGLOBIN 6.7 g/dL (11.0-16.0); LYMPH # 1.9 K/uL (1.0-4.3); LYMPH % 15.3 % (20.0-40.0); MEAN CELL VOLUME 74.9 fL (81.0-99.0); MEAN CORPUSCULAR HEMOGLOBIN 22.9 pg (27.0-31.0); MEAN CORPUSCULAR HGB CONC 30.6 g/dL (33.0-37.0); MEAN PLATELET VOLUME 12.9 fL (7.2-11.7); MONO # 0.9 K/uL (0.0-0.8); MONO % 7.2 % (0.0-10.0); NEUT % 73.1 % (50.0-75.0); RBC 2.91 Mil/uL (3.80-5.20); RED CELL DISTRIBUTION WIDTH 14.2 % (11.5-14.5); WHITE BLOOD COUNT 12.4 K/uL (4.8-10.8)
[2017-04-16] MEDS ORDERED: Oxycodone/Acetaminophen 5/325 mg Tab PO PRN (07:53)
[2017-04-16] MEDS ORDERED: Morphine 4 MG/ML VIAL IV PRN (07:54)
--- NOTE | 2017-04-16 08:04 | CP.PCM.PN ---
Subjective - Date & Time of Evaluation Date of Evaluation: 04/16/17 Time of Evaluation: 06:50 - Subjective Subjective: Patient seen and examined at bedside. Patient had a fever of 100.7 overnight which has resolved. Patient states that she no longer has any nausea or vomiting but persistent pain greatest in the left flank and in the left lower abdominal quadrant not well controlled with current pain regimen. Reports burning with urination but no hematuria. Objective - Vital Signs/Intake and Output Vital Signs (last 24 hours): Temp Pulse Resp BP Pulse Ox 99.2 F 106 H 20 109/55 L 100 04/16/17 06:39 04/16/17 06:39 04/15/17 23:20 04/16/17 06:39 04/15/17 23:20 Intake and Output: 04/16/17 04/16/17 06:59 18:59 Intake Total 1360 Output Total 1300 Balance 60 - Medications Medications: Current Medications Docusate Sodium (Colace) 100 mg PO TID [facility] Last Admin: 04/15/17 17:34 Dose: 100 mg Potassium Chloride/Dextrose/Sod Cl (Potassium Chl 20 Meq In D5-1/2ns) 1,000 mls @ 125 mls/hr IV .Q8H [facility] Last Admin: 04/16/17 02:00 Dose: Not Given Ceftriaxone Sodium 1 gm/ (Sodium Chloride) 100 mls @ 100 mls/hr IVPB Q12H [facility] Last Admin: 04/15/17 21:15 Dose: 100 mls/hr Morphine Sulfate (Morphine) 6 mg IV Q4 PRN PRN Reason: severe pain Ondansetron HCl (Zofran Inj) 4 mg IVP Q6 PRN PRN Reason: Nausea/Vomiting Last Admin: 04/15/17 17:33 Dose: 4 mg Oxycodone/Acetaminophen (Percocet 5/325 Mg Tab) 2 tab PO Q4H PRN PRN Reason: Pain, moderate (4-7) Stop: 04/19/17 07:54 Oxycodone/Acetaminophen (Percocet 5/325 Mg Tab) 1 tab PO Q4H PRN PRN Reason: Pain, Mild (1-3) Stop: 04/17/17 17:17 - Labs Labs: 04/16/17 07:05 04/16/17 07:05 - Constitutional Appears: Well, Non-toxic - Head Exam Head Exam: ATRAUMATIC, NORMOCEPHALIC - Eye Exam Eye Exam: Normal appearance. absent: Conjunctival injection, Scleral icterus - ENT Exam ENT Exam: Mucous Membranes Moist, Normal Oropharynx - Respiratory Exam Respiratory Exam: NORMAL BREATHING PATTERN. absent: Accessory Muscle Use, Respiratory Distress - Cardiovascular Exam Cardiovascular Exam: Tachycardia - GI/Abdominal Exam GI & Abdominal Exam: Distended, Soft, Tenderness (LLQ>LUQ>RLQ). absent: Firm, Guarding, Rigid Additional comments: palpable swelling vs mass in the LLQ. No lashon's sign - Extremities Exam Extremities Exam: absent: Calf Tenderness, Pedal Edema, Tenderness - Back Exam Back Exam: CVA tenderness (L). absent: paraspinal tenderness Additional comments: no flank bruising. Nephrostomy tube in place in left flank with dressing c/d/i, productive of clear yellow fluid - Neurological Exam Neurological Exam: Alert, Awake, Oriented x3 - Psychiatric Exam Psychiatric exam: Normal Affect, Normal Mood - Skin Skin Exam: Dry, Normal Color, Warm Assessment and Plan - Assessment and Plan (Free Text) Assessment: 37F POD#2 s/p lithotripsy with exchange of nephrostomy tube with perinephric bleed persistent moderate pain low grade fever overnight, Mild tachycardia, mild hypotension CT abd and pelvis with PO contrast: Left perinephric collection suspicious for hematoma HGB: 6.7 down from 7.0 yesterday and 8.7 prep-operative Plan: -No indication for general surgical intervention at this time -suggest transfusion -adequate analgesia -continue antibiotics -serial exams Will Discuss with Dr. Talya Beavers, PGY2
--- NOTE | 2017-04-16 11:31 | RAD ---
HISTORY: abdominal pain COMPARISON: April 15, 2017. CT abdomen and pelvis FINDINGS: BOWEL: Normal. No obstruction. No free air. Contrast in nondistended small bowel and colon related to recent CT scan. BONES: Normal. OTHER FINDINGS: Left nephrostomy left ureterostomy catheters identified. IMPRESSION: No significant or acute findings to account for/ related to the clinical presentation.
--- NOTE | 2017-04-16 14:02 | PCM.URO ---
Urology Progress Note - Objective Lab Results Last 24 Hours: Laboratory Results - last 24 hr 04/16/17 04/16/17 07:05 07:05 WBC 12.4 H RBC 2.91 L Hgb 6.7 L Hct 21.8 L MCV 74.9 L MCH 22.9 L MCHC 30.6 L RDW 14.2 Plt Count 176 MPV 12.9 H Neut % (Auto) 73.1 Lymph % (Auto) 15.3 L Mchenry % (Auto) 7.2 Eos % (Auto) 4.1 H Baso % (Auto) 0.3 Neut # 9.0 H Lymph # 1.9 Mchenry # 0.9 H Eos # 0.5 Baso # 0.0 Sodium 136 Potassium 3.5 L Chloride 99 Carbon Dioxide 26 Anion Gap 14 BUN 4 L Creatinine 0.7 Est GFR ( Amer) > 60 Est GFR (Non-Af Amer) > 60 Random Glucose 114 H Calcium 8.0 L Intake & Output: Intake & Output 04/15/17 04/16/17 04/16/17 18:59 06:59 18:59 Intake Total 2870 1360 Output Total 1675 1300 Balance 1195 60 Intake: Intake, IV Amount 2000 1000 Right Hand 2000 1000 Oral 870 360 Output: Drainage 775 300 Left Lower 775 300 Urine 900 1000 Urethral (Akers) 225 Urine, Voided 675 1000 Other: # Voids Urine, Voided 3 Vital Signs: Vital Signs - 24 hr 04/15/17 04/15/17 04/15/17 14:16 16:23 21:30 Temperature 99.1 F 100.7 F H Pulse Rate 90 94 H 74 Respiratory 18 18 Rate Blood Pressure 116/70 112/65 116/74 O2 Sat by Pulse 99 Oximetry 04/15/17 04/15/17 04/15/17 22:02 22:56 23:20 Temperature 100.7 F H 99.1 F 99.7 F H Pulse Rate 117 H Respiratory 20 Rate Blood Pressure 116/75 O2 Sat by Pulse 100 Oximetry 04/16/17 04/16/17 04/16/17 06:39 07:15 08:50 Temperature 99.2 F 98.4 F 98.4 F Pulse Rate 106 H 107 H 101 H Respiratory 18 20 Rate Blood Pressure 109/55 L 91/52 L 102/68 O2 Sat by Pulse 95 97 Oximetry - Date & Time of Note Date: 04/16/17 Time: 09:50
[2017-04-16 14:16] VITALS: O2SAT 100
--- NOTE | 2017-04-16 14:49 | CP.PCM.PN ---
Subjective - Date & Time of Evaluation Date of Evaluation: 04/16/17 Time of Evaluation: 14:49 - Subjective Subjective: PT SEEN BY NO FOR DR. HERBERT, WHO IS MEDICAL MANAGEMENT CONSULT. PT SEEN BY MACHINE FINISHER AND DENIES ANY PAIN AT THIS TIME. EXPRESSES THAT SHE IS EAGER TO GO HOME. SHE ADMITS TO ABD PAIN THIS MORNING BEFORE BREAKFAST BUT IT HAS RESOLVED. DENIES H/A, VISUAL DISTURBANCES, DIZZINESS, SOB, CP, PALPITATIONS, NAUSEA/VOMITING. ADMITS TO HAVING ANEMIA, BUT NEVER SEEKING TREATMENT FOR IT. SHE CURRENTLY TREATS IT HERSELF AT HOME WITH MULTIVITAMIN DAILY AND "NATURAL HERBS AND JUICES." ON MACHINE FINISHER EXAM: AAOX3; SKIN AND CONJUNCTIVA PALE; BS CTA B/L; REGULAR RHYTHM BUT TACHY AT 102-104; ABD SOFT, NT, ND. VITALS: HR 102, BP 104/71, O2 SAT AT RA 97- 98%. REVIEW OF LABS SHOW DROP IN HGB (SEE OFFICIAL LAB RESULTS). PT NOTED TO HAVE D/C ORDER BY DR. VSAQUEZ. CONSIDERING LAB RESULTS, VS, AND PT EXAM, DR. HERBERT AND MYSELF WILL HOLD D/C ORDER FOR NOW. DISCUSSED WITH RAFA HERRERA PLAN TO HOLD D/C HOME FOR NOW UNTIL REPEAT CBC DONE AT [address] HERBERT THIS EVENING. PT TO RECEIVE ONE DOSE OF IV FERRLECIT, SHE IS ADAMANTLY REFUSING BLOOD TRANSFUSION. FINAL DISPO PENDING DR. HERBERT UPON EVAL THIS EVENING. PT AND HER DAUGHTER MADE AWARE OF PLAN AND IN AGREEMENT. Objective - Vital Signs/Intake and Output Vital Signs (last 24 hours): Temp Pulse Resp BP Pulse Ox 98.2 F 93 H 18 117/79 100 04/16/17 14:15 04/16/17 14:15 04/16/17 14:15 04/16/17 14:15 04/16/17 14:15 Intake and Output: 04/16/17 04/16/17 06:59 18:59 Intake Total 1360 Output Total 1300 Balance 60 - Medications Medications: Current Medications Docusate Sodium (Colace) 100 mg PO TID [facility] Last Admin: 04/16/17 13:43 Dose: 100 mg Potassium Chloride/Dextrose/Sod Cl (Potassium Chl 20 Meq In D5-1/2ns) 1,000 mls @ 125 mls/hr IV .Q8H [facility] Last Admin: 04/16/17 10:02 Dose: Not Given Ceftriaxone Sodium 1 gm/ (Sodium Chloride) 100 mls @ 100 mls/hr IVPB Q12H [facility] Last Admin: 04/16/17 10:00 Dose: 100 mls/hr Morphine Sulfate (Morphine) 6 mg IV Q4 PRN PRN Reason: severe pain Ondansetron HCl (Zofran Inj) 4 mg IVP Q6 PRN PRN Reason: Nausea/Vomiting Last Admin: 04/16/17 08:32 Dose: 4 mg Oxycodone/Acetaminophen (Percocet 5/325 Mg Tab) 2 tab PO Q4H PRN PRN Reason: Pain, moderate (4-7) Stop: 04/19/17 07:54 Last Admin: 04/16/17 08:51 Dose: 2 tab Oxycodone/Acetaminophen (Percocet 5/325 Mg Tab) 1 tab PO Q4H PRN PRN Reason: Pain, Mild (1-3) Stop: 04/17/17 17:17 - Labs Labs: 04/16/17 07:05 04/16/17 07:05
[2017-04-16] MEDS ORDERED: Ferric Sodium Gluconat Complex 62.5 mg/5 ml Vial IVPB ONE (15:00)
--- NOTE | 2017-04-16 15:05 | CP.PCM.PN ---
Subjective - Date & Time of Evaluation Date of Evaluation: 04/16/17 Time of Evaluation: 08:00 - Subjective Subjective: FEVER ON /OFF IV RX IN PROGRESS Objective - Vital Signs/Intake and Output Vital Signs (last 24 hours): Temp Pulse Resp BP Pulse Ox 98.2 F 93 H 18 117/79 100 04/16/17 14:15 04/16/17 14:15 04/16/17 14:15 04/16/17 14:15 04/16/17 14:15 Intake and Output: 04/16/17 04/16/17 06:59 18:59 Intake Total 1360 Output Total 1300 Balance 60 - Medications Medications: Current Medications Docusate Sodium (Colace) 100 mg PO TID [facility] Last Admin: 04/16/17 13:43 Dose: 100 mg Potassium Chloride/Dextrose/Sod Cl (Potassium Chl 20 Meq In D5-1/2ns) 1,000 mls @ 125 mls/hr IV .Q8H [facility] Last Admin: 04/16/17 10:02 Dose: Not Given Ceftriaxone Sodium 1 gm/ (Sodium Chloride) 100 mls @ 100 mls/hr IVPB Q12H [facility] Last Admin: 04/16/17 10:00 Dose: 100 mls/hr Morphine Sulfate (Morphine) 6 mg IV Q4 PRN PRN Reason: severe pain Ondansetron HCl (Zofran Inj) 4 mg IVP Q6 PRN PRN Reason: Nausea/Vomiting Last Admin: 04/16/17 08:32 Dose: 4 mg Oxycodone/Acetaminophen (Percocet 5/325 Mg Tab) 2 tab PO Q4H PRN PRN Reason: Pain, moderate (4-7) Stop: 04/19/17 07:54 Last Admin: 04/16/17 08:51 Dose: 2 tab Oxycodone/Acetaminophen (Percocet 5/325 Mg Tab) 1 tab PO Q4H PRN PRN Reason: Pain, Mild (1-3) Stop: 04/17/17 17:17 - Labs Labs: 04/16/17 07:05 04/16/17 07:05 - Constitutional Appears: Non-toxic, Chronically Ill - Head Exam Head Exam: NORMOCEPHALIC - Eye Exam Eye Exam: PERRL. absent: Scleral icterus - ENT Exam ENT Exam: Mucous Membranes Dry - Neck Exam Neck Exam: absent: Lymphadenopathy - Respiratory Exam Respiratory Exam: Decreased Breath Sounds, Rhonchi - Cardiovascular Exam Cardiovascular Exam: REGULAR RHYTHM, +S1, +S2 - GI/Abdominal Exam GI & Abdominal Exam: Distended, Soft - Rectal Exam Rectal Exam: Deferred Assessment and Plan (1) Fever Status: Acute (2) Nephrostomy status Status: Acute (3) UTI (urinary tract infection) Status: Acute
[2017-04-16 18:30] LABS: HEMOGLOBIN 6.7 g/dL (11.0-16.0); MEAN CELL VOLUME 74.8 fL (81.0-99.0); MEAN CORPUSCULAR HEMOGLOBIN 22.8 pg (27.0-31.0); MEAN CORPUSCULAR HGB CONC 30.5 g/dL (33.0-37.0); MEAN PLATELET VOLUME 11.8 fL (7.2-11.7); RBC 2.94 Mil/uL (3.80-5.20); RED CELL DISTRIBUTION WIDTH 14.3 % (11.5-14.5); WHITE BLOOD COUNT 13.5 K/uL (4.8-10.8)
--- NOTE | 2017-04-16 23:53 | OP ---
PROCEDURE DATE: 04/14/2017 PREOPERATIVE DIAGNOSES: Left renal calculi. Left upper ureteral calculus. POSTOPERATIVE DIAGNOSES: Left renal calculi. Left upper ureteral calculus. PROCEDURE: Left percutaneous nephroscopy. Left antegrade ureteroscopy. Laser ureteral lithotripsy. Left upper ureteral stone basketing. Left flexible nephroscopy. OPERATING SURGEON: Carole Seth MD DESCRIPTION OF PROCEDURE: The patient received general anesthesia. The Akers catheter was inserted per urethra. The patient was placed in the prone position. The left flank was prepped and draped in the standard sterile fashion. Perioperative antibiotics were administered. All appropriate pressure points were padded. The procedure was performed with video endoscopic control as well as under fluoroscopic control with C-arm. A 0.03-inch guidewire was inserted into the nephroureteral stent. The guidewire was passed down to the level of the bladder. A second guidewire was inserted to the level of the bladder using the 10-12 coaxial catheters. The balloon dilation was performed over the working wire. The Amplatz sheath was inserted over the balloon. Nephroscopy was performed. Multiple stones within the renal pelvis were removed. There was noted to be a stone within the upper ureter. The nephroscope lens was not working properly. The stones were visualized with the cystoscope, but could not be grasped with the cystoscope. The flexible nephroscope was then advanced down to the level of the upper ureteral stone. Attempt at stone basketing of the intact stone was made. However, the stone was too large to be engaged in the basket. Laser lithotripsy was performed with the 365 micron fiber. There was excellent fragmentation of the yellow stone. Multiple flat fragments were removed using the stone basket. Antegrade ureteroscopy was performed with the 7-Malagasy flexible ureteroscope. The ureteroscope was advanced down to the level of the bladder. There were no further stone fragments or obstruction within the ureter identified. The ureteroscope lens also was noted to have decreased visibility. There were other calyceal tone identified on fluoroscopy. Nephroscopy was performed with a flexible nephroscope. Attempt to enter these calyces was made. Numerous calyces were entered after guidewire was able to be advanced. However, the stones were not located within the calyces that were able to be entered. Nephrostogram was performed with insulation wire *------*to better delineate the calyceal anatomy and to enter into these calyces. Under nephroscopy and fluoroscopy, the access into these calyces were not identified. The nephroscope was removed. A 24-Malagasy Re-Entry Malecot nephrostomy catheter was inserted over the working wire. The proper nephrostomy position was confirmed with the nephrostogram. The remaining guidewire was removed. Sterile dressing was applied, after Marcaine was infiltrated for local anesthesia. Estimated blood loss 50 mL. Complication with surgery none. The patient tolerated the procedure without complication. The patient was *------* satisfactory condition. Vital signs remained stable. Carole Seth MD
[2017-04-17 11:56] VITALS: BP 103/68; PULSE 100; RESP 20; TEMP 98.5
== END 2017-04-16 21:15 | disposition home or self-care (01) | DRG 669 ==
LOC: C.SDS 11:00 → C.6T 17:50
PROVIDERS: ADMIT Urology; ATTEND Urology
PROC: 0TC78ZZ Extirpation of Matter from Left Ureter, Via Natural or Artificial Opening Endoscopic (ICD-10-PCS; 2017-04-14)
PROC: 0TC48ZZ Extirpation of Matter from Left Kidney Pelvis, Via Natural or Artificial Opening Endoscopic (ICD-10-PCS; principal; 2017-04-14 13:00)
DX: N20.2 Calculus of kidney with calculus of ureter (principal); N39.0 Urinary tract infection, site not specified; Z93.6 Other artificial openings of urinary tract status; D64.9 Anemia, unspecified; N18.9 Chronic kidney disease, unspecified

== ENCOUNTER 2017-05-03 09:14 | Day surgery (SDC) | payer OTHER ==
[2017-05-03 09:36] VITALS: BMI 33.0
[2017-05-03 10:07] VITALS: TEMP 97.8
[2017-05-03] MEDS ORDERED: Iohexol 240 200 ML IJ ONE (11:44)
[2017-05-03] MEDS ORDERED: Lactated Ringer's 500 ML IV ONE ×2 (11:51)
[2017-05-03] MEDS: cefTRIAXone IV 1 gm in Dextros 50 ML IVPB ONE ×2 (11:52→11:58)
[2017-05-03] MEDS ORDERED: Iohexol 240 (50 ml) ONE (12:30)
--- NOTE | 2017-05-03 12:32 | PCM.SURG1 ---
Surgeon's Initial Post Op Note - Surgeon's Notes Surgeon: sher marin Boat Carpenter Mechanic: none Type of Anesthesia: None Pre-Operative Diagnosis: urolithiasis Operative Findings: same Post-Operative Diagnosis: same Operation Performed: L nephrostogran. removal of L NT Specimen/Specimens Removed: urine. L NT Estimated Blood Loss: EBL {In ML}: 0 Blood Products Given: N/A Drains Used: No Drains Post-Op Condition: Good Date of Surgery/Procedure: 05/03/17 Time of Surgery/Procedure: 12:20
[2017-05-03 13:01] VITALS: RESP 18; O2SAT 100
[2017-05-03 13:03] VITALS: BP 128/85; PULSE 85
--- NOTE | 2017-05-04 16:53 | RAD ---
HISTORY: UROLITHIASIS COMPARISON: 04/15/2017 ; abdomen and pelvis without contrast 04/27/2017 FINDINGS: BOWEL: No bowel obstruction Left nephrostomy tube -left ureteral stent. 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 IMPRESSION: Left nephrostomy tube-left ureteral stent position unchanged. O large calcifications consistent with patient's known large left renal calculi. No interval change in overall appearance position with the 04/15/2017 image
--- NOTE | 2017-05-04 17:11 | RAD ---
PROCEDURE: HISTORY: COMPARISON: 05/03/2017 TECHNIQUE: Total fluoroscopic time utilized during the procedure: 4.6 2nd ; 39.5 mGy cm 2 FINDINGS: Submitted images from the current procedure: 3 Please refer to the physician's notes performing the procedure. IMPRESSION: Less than 1 hour fluoroscopic time utilized during performance of the procedure
--- NOTE | 2017-05-05 10:05 | OP ---
PROCEDURE DATE: 05/03/2017 PREOPERATIVE DIAGNOSIS: Urolithiasis. POSTOPERATIVE DIAGNOSIS: Urolithiasis PROCEDURE: Left nephrostogram. Removal of left nephrostomy tube. SURGEON: Dr. Carole Seth. PROCEDURE FOLLOWS: The patient had gift wrapper film performed. Line Servicer film revealed multiple calyceal stones overlying the left renal shadow. The left nephrostomy tube was intact. The patient received perioperative antibiotics. Procedure was performed in a prone position. The left flank was prepped in a sterile fashion. Iodinated contrast instilled slowly via the nephrostomy tube. Procedure was performed under fluoroscopic control. There was noted to be excellent flow of contrast to the bladder. There was no evidence ureteral stone or ureteral obstruction. The calyces were identified. The nephrostomy tube was removed. Post-drain films were obtained as well. A sterile dressing was applied. The patient tolerated the procedure without complication. antibiotics had been administered. Carole Seth MD
== END 2017-05-03 12:55 | disposition home or self-care (01) ==
LOC: C.SDS 09:14
PROVIDERS: ATTEND Urology
DX: N20.0 Calculus of kidney (principal); N20.9 Urinary calculus, unspecified
CPT/HCPCS: 50580; 74000; 76000; 87086; J0696; J7120

== ENCOUNTER 2017-09-07 21:30 | Emergency (ER) | payer OTHER ==
[2017-09-07 21:30] VITALS: BMI 33.0
--- NOTE | 2017-09-07 22:19 | C.PDOC ---
History Of Present Illness The patient presents to the ED for evaluation of left flank and right upper quadrant pain which began earlier today. 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 She underwent lithotripsy last week and reports that she has been passing stones. She denies fever, chills. Time Seen by Provider: 09/07/17 22:18 Chief Complaint (Nursing): Back Pain History Per: Patient History/Exam Limitations: no limitations Onset/Duration Of Symptoms: Hrs Current Symptoms Are (Timing): Still Present Quality Of Discomfort: "Pain" Severity: Mild Pain Scale Rating Of: 3 Previous Symptoms: Other (flank pain ) Associated Symptoms: denies: Incontinence, New Weakness, New Numbness Exacerbating Factor(s): Nothing Recent travel outside of the [place]: No Additional History Per: Patient Past Medical History Reviewed: Historical Data, Nursing Documentation, Vital Signs Vital Signs: Last Vital Signs Temp 97.9 F 09/08/17 04:12 Pulse 67 09/08/17 04:12 Resp 18 09/08/17 04:12 BP 125/77 09/08/17 04:12 Pulse Ox 97 09/08/17 04:12 - Medical History PMH: Anemia, Kidney Stones, Chronic Kidney Disease Surgical History: No Surg Hx - [facility] Procedures DRAINAGE OF LEFT KIDNEY WITH DRAINAGE DEVICE, PERC APPROACH (03/26/17) EXTIRPATION OF MATTER FROM LEFT KIDNEY PELVIS, ENDO (04/14/17) EXTIRPATION OF MATTER FROM LEFT KIDNEY, PERC APPROACH (03/26/17) EXTIRPATION OF MATTER FROM LEFT URETER, ENDO (04/14/17) INSPECTION OF KIDNEY, PERCUTANEOUS APPROACH (03/10/17) PLAIN RADIOGRAPHY OF LEFT KIDNEY USING OTHER CONTRAST (03/10/17) Family History: States: Unknown Family Hx - Social History Hx Alcohol Use: No Hx Substance Use: No - Immunization History Hx Tetanus Toxoid Vaccination: No Hx Influenza Vaccination: No Hx Pneumococcal Vaccination: No Review Of Systems Constitutional: Negative for: Fever, Chills Cardiovascular: Negative for: Chest Pain, Palpitations Respiratory: Negative for: Cough, Shortness of Breath Gastrointestinal: Positive for: Abdominal Pain (right upper quadrant ). Negative for: Nausea, Vomiting, Diarrhea, Constipation Genitourinary: Negative for: Dysuria, Hematuria Musculoskeletal: Positive for: Other (left flank pain ) Skin: Negative for: Rash, Lesions, Jaundice, Bruising Neurological: Negative for: Weakness, Numbness Physical Exam - Physical Exam Appears: Non-toxic, No Acute Distress Skin: Warm, Dry Oral Mucosa: Moist Neck: Supple Chest: Symmetrical, No Deformity, No Tenderness Cardiovascular: Rhythm Regular, No Murmur Respiratory: Normal Breath Sounds, No Rales, No Rhonchi, No Wheezing Gastrointestinal/Abdominal: No Guarding, No Rebound Back: Other (bilateral flank tenderness on palpation ) Extremity: Normal ROM, Capillary Refill (less than 2 seconds ) Neurological/Psych: Oriented x3 Gait: Steady ED Course And Treatment - Laboratory Results Result Diagrams: 09/07/17 22:39 09/07/17 22:39 O2 Sat by Pulse Oximetry: 100 (on RA) Pulse Ox Interpretation: Normal Progress Note: Bloodwork, UA, US ordered and reviewed. Toradol IVP and Lactated Ringers Solution IV administered. Disposition Counseled Patient/Family Regarding: Studies Performed, Diagnosis - Disposition Disposition Time: 22:19 Condition: FAIR Forms: [facility] (Mozambican) - Clinical Impression Clinical Impression: Renal colic on left side - Scribe Statement The provider has reviewed the documentation as recorded by the Scribe (Lashay Ram) Provider Attestation: All medical record entries made by the Scribe were at my direction and personally dictated by me. I have reviewed the chart and agree that the record accurately reflects my personal performance of the history, physical exam, medical decision making, and the department course for this patient. I have also personally directed, reviewed, and agree with the discharge instructions and disposition. Physician Patient Turnover Patient Signed Over To: Janette Smith Handoff Comments: pending dr marin and disposition
[2017-09-07 22:27] LABS: RBC URINE 98 /hpf (0-3); URINE BACTERIA OCC (<OCC); URINE BILIRUBIN NEGATIVE (NEGATIVE); URINE BLOOD 3+ (NEGATIVE); URINE COLOR Yellow (YELLOW); URINE GLUCOSE (UA) NORMAL (Normal); URINE KETONE NEGATIVE (NEGATIVE); URINE PROTEIN NEGATIVE (NEGATIVE); URINE UROBILINOGEN NORMAL mg/dL (0.2-1.0); WBC URINE 3 /hpf (0-5)
[2017-09-07 22:28] LABS: URINE LEUKOCYTE ESTERASE TRACE Leu/uL (Negative)
[2017-09-07] MEDS ORDERED: Lactated Ringer's 1,000 ML IV ONE (22:29)
[2017-09-07 22:43] LABS: EOS # 0.4 K/uL (0.0-0.7); MEAN CORPUSCULAR HGB CONC 31.8 g/dL (33.0-37.0)
[2017-09-07] MEDS ORDERED: Lactated Ringer's 1,000 ML ONE (22:48)
[2017-09-07 22:50] LABS: BASO # 0.1 K/uL (0.0-0.2); BASO % 0.6 % (0.0-2.0); EOS % 3.7 % (0.0-4.0); HEMATOCRIT 34.7 % (34.0-47.0); LYMPH # 3.7 K/uL (1.0-4.3); LYMPH % 34.4 % (20.0-40.0); MEAN CORPUSCULAR HEMOGLOBIN 24.4 pg (27.0-31.0); MEAN PLATELET VOLUME 13.3 fL (7.2-11.7); MONO # 0.7 K/uL (0.0-0.8); MONO % 6.2 % (0.0-10.0); RED CELL DISTRIBUTION WIDTH 14.7 % (11.5-14.5); WHITE BLOOD COUNT 10.7 K/uL (4.8-10.8)
[2017-09-07 22:51] LABS: MEAN CELL VOLUME 76.8 fL (81.0-99.0)
[2017-09-07 22:56] LABS: BLOOD UREA NITROGEN 12 mg/dL (7-17); CALCIUM 8.5 mg/dl (8.6-10.4); CARBON DIOXIDE 27 mmol/L (22-30); CHLORIDE 101 mmol/L (98-107); GFR AFRICAN-AMERICAN > 60; GLUCOSE,RANDOM 104 mg/dL (65-105); POTASSIUM 3.4 mmol/L (3.6-5.2); SODIUM 139 mmol/L (132-148)
[2017-09-07 23:06] VITALS: RESP 18
--- NOTE | 2017-09-08 02:58 | US ---
EXAM: US Abdomen Complete CLINICAL HISTORY: 37 years old, female; Pain; Abdominal pain; Generalized; Additional info: HX of l staghorn, b/l kidney pain TECHNIQUE: Real-time ultrasound of the abdomen (complete) with image documentation. COMPARISON: No relevant prior studies available. FINDINGS: Liver: Enlarged, 20.1 cm. Fatty infiltration. No mass. No intrahepatic ductal dilatation. Gallbladder: No gallstones. No wall thickening. No pericholecystic fluid. No sonographic Castaneda's sign. Common bile duct: No dilatation. No stones. Pancreas: Unremarkable as visualized. Kidneys: Normal echogenicity. 2.8 x 2.2 x 3.7 cm, 2.5 x 2.2 x 3.7 cm LEFT renal cysts. Few LEFT renal calculi, up to 1.3 cm. No hydronephrosis. Spleen: No splenomegaly. Aorta: Unremarkable. No aneurysm. Inferior vena cava: Unremarkable. Free fluid: No significant free fluid. IMPRESSION: 1.No acute findings. 2.Non-acute findings are described above.
[2017-09-08] MEDS ORDERED: Lactated Ringer's 1,000 ML IV ONE (05:32)
[2017-09-08] MEDS ORDERED: Lactated Ringer's 1,000 ML ONE (05:44)
[2017-09-08 06:55] VITALS: O2SAT 100
[2017-09-08 10:16] VITALS: BP 131/72; PULSE 61; TEMP 97.4
== END 2017-09-08 10:50 | disposition home or self-care (01) ==
LOC: C.ER 21:30
DX: N20.0 Calculus of kidney (principal); Z87.442 Personal history of urinary calculi
CPT/HCPCS: 76700; 80048; 81001; 84703; 85025; 96361; 96374; 99285; J1885; J7120